=== PATIENT | female | born 1940 | race Caucasian/White ===

== ENCOUNTER → 2016-10-07 | Outpatient (CLI) | payer MEDICARE, BC ==
--- NOTE | 2016-10-09 10:48 | P.ARTDOP ---
Arterial Doppler LOWER EXTREMITY ARTERIAL DOPPLER: DATE OF SERVICE: 10/07/2016 Reason for study: Lower extremity pain, numbness, and coolness. Doppler waveforms: Multiphasic bilaterally throughout. Pulse volume recording: Normal configuration throughout. Pressure gradients: Across the knee. Ankle-brachial indices: 0.85 on the right and 0.93 on the left. Toe pressures: 79 on the right, 82 on the left Impression: Mild bilateral fem-pop disease. Not likely to correlate with symptoms..
== END | disposition home or self-care (01) ==
LOC: RADUSWWP 12:43
PROVIDERS: ATTEND Neurological Surgery
DX: I77.89 Other specified disorders of arteries and arterioles (principal)
CPT/HCPCS: 93923

== ENCOUNTER → 2020-08-17 | Outpatient (CLI) | payer MEDICARE, BC ==
--- NOTE | 2020-08-18 04:52 | MR ---
EXAMINATION TYPE: MR ankle RT wo con DATE OF EXAM: 08/17/2020 COMPARISON: None HISTORY: Rt ankle pain and bump with limited range of movement for 6 months. Multiplanar multiecho imaging of the right ankle was performed without contrast. There is plantar calcaneal spurring. Achilles tendon is intact. Plantar fascia appears intact. There is subcutaneous edema around the lower leg above the ankle. The ankle mortise is anatomic. There is 1 .3 cm area of increased fluid signal in the medial dome of the talus. This extends to the articular s urface. The collateral ligaments appear intact. I see no fracture. The medial and lateral flexor tend ons of the ankle appear intact. There is increased signal on the T2 images in the second cuneiform bone. No fracture line seen. There is a marker placed over the area of concern on the anterior aspect of the distal tibia. There i s subcutaneous mixed signal elongated mass which measures 22 x 12 mm. This could involve one of the e xtensor tendons of the foot. IMPRESSION: There is increased signal consistent with bone bruise and edema and the medial dome of the talus. Thi s could be developing degenerative cyst. There is similar 1 cm focus in the anterior calcaneus extend ing to the subtalar joint. This could be degenerative cyst formation. There is similar appearance of the second cuneiform bone. There is subcutaneous mass at the anterior ankle joint. This could relate to extensor tendon tear wit h hemorrhage.
== END | disposition home or self-care (01) ==
LOC: RADMRIMAIN 15:44
PROVIDERS: ATTEND Nurse Practitioner Family
DX: R22.41 Localized swelling, mass and lump, right lower limb (principal)

== ENCOUNTER → 2020-09-22 | Outpatient (CLI) | payer MEDICARE, BC ==
--- NOTE | 2020-09-24 13:06 | MR ---
EXAMINATION TYPE: MR angio head wo/neck wo/w con DATE OF EXAM: 09/22/2020 COMPARISON: 10/27/2009 HISTORY: weakness, neuropathy, stenosis, l hemisphere cva CONTRAST: None TECHNIQUE: Multiplanar multiecho imaging on a 3.0 Rosalba magnet is performed through the [place]. 3-D iqjg-zc-vygkel imaging is performed. Source images are reviewed on the computer in the axi al plane. Reconstructed images rotating on the computer are reviewed. FINDINGS: MRA of neck vessels: Right vertebral artery is dominant. Common carotid arteries appear unremarkable . No flow gap is evident at the bifurcation. Internal carotid arteries are patent to the skull base m ild plaquing is suspected at the left carotid bifurcation. 2 adjacent plaques or ulceration is not ex cluded. Flow limiting stenosis is not evident. MRA [place]: The internal carotid arteries bifurcate normally into A1 and M1 segments. The A2 segments are normal. Middle cerebral artery branches are normal. Anterior communicating artery is patent. The right posterior communicating artery is patent. The left posterior communicating artery is patent. Vertebrobasilar arteries within the sxabg-by-iflw are normal. Vertebral artery is dominant. Posterior cerebral vasculature is normal. No suspicious aneurysm or aneurysmal dilatation is evident. No obs tructions are identified. No significant flow-limiting stenosis is evident. COMPARISON: No significant interval change is evident. IMPRESSIONS: 1. Normal MRA [place]. 2. Ulceration or 2 adjacent plaques may be present without significant flow-limiting stenosis left ca rotid bifurcation. Right carotid bifurcation mild plaquing without significant flow-limiting stenosis . 3. Dominant right vertebral artery.
== END | disposition home or self-care (01) ==
LOC: RADMRIMAIN 09:25
PROVIDERS: ATTEND Psychiatry & Neurology Neurology
DX: I65.21 Occlusion and stenosis of right carotid artery (principal)
CPT/HCPCS: 70544; 70549; A9585

== ENCOUNTER → 2020-10-06 | Outpatient (CLI) | payer MEDICARE, BC ==
--- NOTE | 2020-11-09 14:05 | EM ---
Event monitor shows 2 short runs of nonsustained atrial tachycardia, Mild sinus bradycardia, asymptomatic mostly at night and early as of the morning When the patient complained of shortness of breath and tiredness, his heart rate was in the 80s without any arrhythmias MTDD
== END | disposition home or self-care (01) ==
LOC: RADECHMAIN 12:20
PROVIDERS: ATTEND Psychiatry & Neurology Neurology
DX: I47.1 Supraventricular tachycardia (principal); R00.1 Bradycardia, unspecified
CPT/HCPCS: 93270

== ENCOUNTER 2020-12-25 10:28 | Day surgery (SDC) | payer MEDICARE, BC ==
[2020-12-22 09:09] VITALS: BMI 35.0
[~2020-12-25 10:28] MED LIST: SODIUM CHLORIDE 0.9% 1,000 ML IV SCH
[2020-12-25] MEDS ORDERED: SODIUM CHLORIDE 0.9% 500 ML 500 ML IV ONE (10:55)
[2020-12-25 11:05] VITALS: TEMP 98
[2020-12-25 11:05] LABS: Glucose,Whole Blood 105 mg/dL (75-99)
[2020-12-25] MEDS ORDERED: MIDAZOLAM 2 MG/2 ML VIAL IV ONE (11:44)
[2020-12-25] MEDS ORDERED: LIDOCAINE 1% INJ 10MG/ML (20 ML MDV) SQ ONE ×2 (11:46)
[2020-12-25 12:22] LABS: Glucose,Whole Blood 98 mg/dL (75-99)
[2020-12-25 13:12] VITALS: BP 142/63; PULSE 48; RESP 18
--- NOTE | 2020-12-25 13:23 | PCN ---
PROCEDURE NOTE PROCEDURE PERFORMED: Loop recorder insertion DATE OF SERVICE: 12/25/2020. Moderate conscious sedation time 10 minutes. INDICATION: Cryptogenic, stroke. CLINICAL INFORMATION: This is a patient with a history of TIA CVA, was seen by Neurology, had an event monitor that was unremarkable, but there is concern that atrial fib may be an issue. She was therefore advised loop recorder after due discussion regarding risks, benefits, and options. PROCEDURE NOTE: Under strict aseptic precautions and local anesthesia with intravenous antibiotic initiated, a stab incision was made in the left fourth intercostal space using the tool provided. The loop recorder was positioned in the left fourth intercostal space in a lateral direction using the tool provided. A single suture was used to close the stab incision. The device was interrogated and the device signal was excellent with a with a voltage of 0.45 mV. The patient tolerated the procedure well without complication. She will be discharged today and will see Dr. Nunez for a device check in 1 week. Loop recorder details: [employer]ident [employer] Manager [employer] model Reveal LNQ11, serial number [id number]. The voltage on interrogation was 0.45 mV. The patient was set for a cryptogenic stroke and bradycardia protocol. Atrial fib all episodes will be recorded. Patient tolerated the procedure well without complication. Details were discussed with the patient and I also spoke to her . SHAWN / MIRANDA: [id number] /
== END 2020-12-25 13:40 | disposition home or self-care (01) ==
LOC: CATHEP 10:28
PROVIDERS: ATTEND Internal Medicine Interventional Cardiology
DX: Z86.73 Personal history of transient ischemic attack (TIA), and cerebral infarction without residual deficits (principal); Z20.822 Contact with and (suspected) exposure to COVID-19
CPT/HCPCS: 33285; 87635; C1764; J2250; J0690; J2001

== ENCOUNTER → 2021-06-20 | Outpatient (CLI) | payer MEDICARE, BC ==
[2021-06-20 12:55] LABS: Appearance,Urine Clear (Clear); Bilirubin,Urine Negative (Negative); Blood,Urine Negative (Negative); Color,Urine Yellow; Glucose,Urine (UA) Negative (Negative); Hyaline Casts,Urine 1 /lpf (0-2); Ketones,Urine Negative (Negative); Leukocyte Esterase,Urine Trace (Negative); Mucus,Urine Rare /hpf; Nitrite,Urine Negative (Negative); PH, Urine 6.5 (5.0-8.0); Protein,Urine Negative (Negative); RBC,Urine 1 /hpf (0-5); Specific Gravity,Urine 1.017 (1.001-1.035); Squamous Epithelial Cell,Urine 2 /hpf (0-4); Urobilinogen,Urine <2.0 mg/dL (<2.0); WBC,Urine 1 /hpf (0-5)
[2021-06-20 13:03] LABS: Partial Thromboplastin Time 24.9 sec (22.0-30.0); Prothrombin Time 10.8 sec (9.0-12.0)
[2021-06-20 19:06] LABS: HCT 41.7 % (37.2-46.3); MCHC 31.2 g/dL (32.0-37.0); MCV 89.9 fL (80.0-97.0); Mean Platelet Volume 10.3 fL (9.5-12.2); NRBC Per 100 WBC 0 /100 WBCS (0.0-0.0); Platelet Count 303 X 10*3/uL (140-440); RBC 4.64 X 10*6/uL (4.10-5.20); RDW 14.3 % (11.5-14.5); WBC 7.79 X 10*3/uL (4.50-10.00)
[2021-06-20 19:15] LABS: African American GFR (CKD) 79.5 (60.0-200.0); Albumin 4.7 g/dL (3.8-4.9); Albumin/Globulin Ratio 1.93 (1.60-3.17); BUN/Creat Ratio 24.47 Ratio (12.00-20.00); Blood Urea Nitrogen 19.6 mg/dL (9.0-27.0); Calcium 9.5 mg/dL (8.7-10.3); Globulin 2.4 g/dL (1.6-3.3); Non-African American GFR(CKD) 68.6 (60.0-200.0); Total Bilirubin 0.4 mg/dL (0.30-1.20); Total Protein 7.1 g/dL (6.2-8.2)
== END | disposition home or self-care (01) ==
LOC: LABPAT 11:47
PROVIDERS: ATTEND Orthopaedic Surgery
DX: Z01.812 Encounter for preprocedural laboratory examination (principal)
CPT/HCPCS: 36415; 80053; 81001; 85027; 85610; 85730; 87070

== ENCOUNTER 2021-07-03 07:48 | Observation (INO) | payer MEDICARE, BC ==
[2021-06-29 11:38] VITALS: BMI 34.5
[~2021-07-03 07:48] MED LIST changes: +ACETAMINOPHEN TAB 500 MG TAB PO PRN; +GABAPENTIN 300 MG CAP PO PRN; +HYDROmorphone 0.5 MG/0.5 ML SYRINGE IVP PRN; +LIDOCAINE 1% (10MG/ML) FOR IV START INTRADERMA PRN; +MELOXICAM 7.5 MG TAB PO PRN; +ONDANSETRON 4 MG/2 ML VIAL IVP ONE; -SODIUM CHLORIDE 0.9% 1,000 ML IV SCH; +TRANEXAMIC ACID IN NACL,ISO-OS 1,000 MG in SALINE 1 100ML.BAG IVPB PRN
[2021-07-03] MEDS ORDERED: HYDROmorphone 0.2 MG/1 ML SYRINGE IVP PRN (08:38)
[2021-07-03] MEDS ORDERED: MAGNESIUM HYDROXIDE 2,400 MG/10 ML CUP PO PRN (08:38)
[2021-07-03] MEDS ORDERED: bisacodyL 10 MG SUPP RECTAL PRN (08:38)
[2021-07-03] MEDS ORDERED: HYDROmorphone 0.5 MG/0.5 ML SYRINGE IVP PRN ×2 (08:38)
[2021-07-03] MEDS ORDERED: NA PHOS,M-B/NA PHOS,DI-BA 133 ML ENEMA RECTAL PRN (08:38)
[2021-07-03] MEDS ORDERED: NALOXONE 0.4 MG/ML 1 ML VIAL IV PRN (08:38)
[2021-07-03] MEDS ORDERED: HYDROcodone/APAP 7.5-325MG 1 EACH TAB PO PRN (08:40)
[2021-07-03] MEDS: LACTATED RINGERS 1,000 ML IV SCH (08:40)
[2021-07-03 09:03] LABS: Glucose,Whole Blood 121 mg/dL (75-99)
[2021-07-03] MEDS ORDERED: fentaNYL (PF) 50 MCG/ML 2 ML AMP IV ONE (09:11)
[2021-07-03] MEDS ORDERED: MIDAZOLAM 2 MG/2 ML VIAL IV ONE (09:11)
[2021-07-03] MEDS ORDERED: SODIUM CHLORIDE 0.9% (PF) 10 ML VIAL ONE (09:35)
[2021-07-03] MEDS ORDERED: LIDOCAINE 2% INJ 20 MG/ML (2 ML VIAL) ONE (09:35)
[2021-07-03] MEDS ORDERED: ROPIVACAINE 5 MG/ML 30 ML VIAL ONE (09:35)
[2021-07-03] MEDS ORDERED: fentaNYL (PF) 50 MCG/ML 2 ML AMP ONE (09:35)
[2021-07-03] MEDS ORDERED: TRANEXAMIC ACID IN NACL,ISO-OS 1,000 MG/100 ML BAG ONE (09:35)
[2021-07-03] MEDS ORDERED: MIDAZOLAM 2 MG/2 ML VIAL ONE (09:35)
[2021-07-03] MEDS ORDERED: PROPOFOL 10 MG/ML 20 ML VIAL IV ONE (09:35)
--- NOTE | 2021-07-03 10:55 | P.OP ---
Date of Procedure: 07/03/21 Preoperative Diagnosis: Severe osteoarthritis left knee Postoperative Diagnosis: Severe osteoarthritis left knee Procedure(s) Performed: Left total knee arthroplasty Implants: [employer] Journey II CR Oxinium cruciate retaining femoral component size 4, left [employer] Journey nonporous tibial baseplate size 3, left [employer] Journey II, XLPE CR articular insert, size 10 mm, Size 3-4, left [employer] Rebecca II resurfacing patellar component, oval, 29 mm All components were cemented using Palacos R bone cement The articulation is Oxinium on polyethylene Anesthesia: spinal Surgeon: Yonny Eddy Mechanical Lead #1: Kelsey Douglas Estimated Blood Loss (ml): 30 Pathology: other (Bone and cartilage) Condition: stable Disposition: PACU Indications for Procedure: After failure of conservative treatment we discussed the surgical and nonsurgical treatment options at length. Patient wishes to proceed with a total knee arthroplasty. Complications specific to this procedure were discussed at length, including but not limited to infection, bleeding, stiffness, and nerve injury. Covid-19 was also discussed at length with the patient, and they are aware of the current policies and procedures. The patient was given the option of delaying surgery, but they elect to proceed knowing these risks. Patient is aware of all these complications and informed consent was obtained Operative Findings: The operative findings are consistent with severe osteoarthritis of the left knee Description of Procedure: Patient was seen in the preoperative area and the consent was reviewed and the operative site was marked with a skin marker. The patient verified the procedure and the operative site. An adductor canal pain catheter and an iPACK block was placed by anesthesia in the preoperative area. The patient was then brought to the operating room and given preoperative antibiotics intravenously. A gram of transexamic acid was given intravenously. A spinal anesthetic was administered by the anesthesia department. A tourniquet was placed on the upper thigh and the lower extremity was prepped with chlorhexidine and draped in usual sterile fashion. A universal timeout was then performed which confirmed the patient's name, surgical site, ALLERGIES, and consent. The lower extremity was then exsanguinated and tourniquet was inflated to 250 mmHg. A standard anterior midline approach to the knee was performed. The skin and subcutaneous tissue were sharply dissected down to the patellar tendon. A medial parapatellar arthrotomy was then performed. The knee was then extended, the patellar was everted, and the knee was again flexed. The infra-patellar fat pad was removed in order to enhance exposure. The anterior horns of both menisci were excised, and a release was performed to the posterior medial aspect of the knee. On gross visual inspection, there was complete loss of articular cartilage in the medial and patellofemoral joint spaces. There was also significant cartilage damage in the lateral compartment. There were multiple periarticular osteophytes globally about the knee which were then removed with a Ronguer. The femoral canal was then opened with the 9.5 mm intramedullary drill. The 8 mm intramedullary elmer was then inserted into the femoral canal with the distal femoral cutting guide set for 5 of valgus. The distal femoral cutting block was then pinned in place. The intramedullary elmer was then removed, and the distal femur was then cut. The cutting block was then removed and the cut was checked for symmetry. The resected bone was then measured to confirm the appropriate distal femoral resection. Next, the sizing guide was then placed and set for 3 external rotation based off of the epicondylar axis and Whitesides line. Pins were then placed and the drill holes, and the femur was sized with the sizing stylus. The pins were then removed, and the sizing guide was then removed. The spikes of the femoral block was then placed into the predrilled holes, and malleted into place. Two 45 mm pins were then placed into the fixation holes on the cutting block. An ida wing was then used to ensure there would be no notching with the anterior cut. The anterior condyles were cut without notching. The anterior chord cut was then performed, followed by the posterior cut, posterior chamfer cut, and the anterior chamfer cut. The collateral ligaments were protected during the entire process. The cutting block was then removed. Any remaining bone and osteophytes were removed from the femur with a Ronguer. The femoral canal was plugged with autologous bone. Attention was then directed to the tibia. The remaining ACL was removed with a Ronguer, and the tibia was then gently subluxed forward with a large bent knee retractor. Any remaining menisci were excised. The posterior lateral corner was cauterized in order to coagulate the lateral geniculate artery. The extra medullary tibial cutting guide was then placed, set for the appropriate rotation, slope, and depth of resection. The proximal tibia cutting guide was then pinned in place. Proximal tibia was then cut and sized. The femoral trial was placed. A narrow saw blade was then used to remove the anterior intracondylar femoral bone. The CR notch trial was then placed. The tibial trial was placed with the appropriate-sized insert. The knee was able to fully extend and flex to 130 and was stable throughout all range of motion. The knee was then extended and the patella was everted. Patella was then measured, and then using an osteotomy guide, the patella was cut at the appropriate level. The patella was then measured and drilled and the patella trial was then placed. The knee was then taken through range of motion with the patella trial and the patella tracked normally using the no thumbs technique. The knee was then extended patella trial was then removed and the patella was everted. Knee was then flexed and lug holes were drilled through the femoral trial and the femoral trial was then removed. The tibial was then re-exposed, and the tibial broach guide was then pinned in place after it was set for the appropriate rotation to allow for the most coverage without overhang. The tibia was then reamed and broached. The cut surfaces of bone were then irrigated with pulsatile lavage. The knee was also irrigated with Irrisept solution. The components were then opened, the cement was mixed, and the components were then cemented in place. The cement was allowed to harden with the knee in full extension. After the cemented hardened, the tourniquet was released and hemostasis was obtained. A second gram of transexamic acid was given intravenously. The knee was again irrigated. The knee was again taken through range of motion and found to be stable throughout all range of motion of 0-130, and the patella tracked normally. The fascia was then closed with 0 Vicryl followed by #2 strata fix suture. The subcutaneous tissue was closed with 3-0 Vicryl and 3-0 strata fix. Exofin glue was used for the skin and placed with the knee in flexion. After the glue had dried, and Optafoam silver impregnated dressing was applied. The patient was then transferred to recovery room in stable condition. The administrative library assistant KEYLA Fuentes was required due the complexity surgery and the need for a skilled surgical training specialist. She assisted in positioning, draping, retraction, and closure of the wound.
[2021-07-03 11:38] LABS: Glucose,Whole Blood 115 mg/dL (75-99)
[2021-07-03] MEDS ORDERED: ROPIVACAINE 0.2%-NS ON-Q PUMP 1,090 MG, EMPTY PAIN BALL 1 EACH MISCELLANE PRN (11:38)
--- NOTE | 2021-07-03 11:39 | P.ANPRN ---
Procedure Note - Anesthesia - Nerve Block Performed Left Adductor Canal Infusion Time Out Performed: Yes (0911) Date of Procedure: 07/03/21 Procedure Start Time: 09:12 Procedure Stop Time: 09:17 Location of Patient: PreOp Indication: Acute Post-Operative Pain, Requested by Surgeon Specifically requested for management of pain by DrMerissa: Yonny Eddy Sedation Type: Sedate with meaningful contact maintained Preparation: Sterile Prep, Sterile Dressing Position: Supine Catheter Depth at Skin (cm): 8 Catheter: Indwelling Needle Types: Pajunk Needle Gauge: 18 Ultrasound used to visualize needle placement: Yes Ultrasound used to observe medication spread: Yes Injectate: 0.5% Ropivacaine (see comment for volume) (15cc + 5cc nacl pf) Blood Aspirated: No Pain Paresthesia on Injection Noted: No Resistance on Injection: Normal Image Stored and Saved: Yes Events: Uneventful and Well Tolerated
--- NOTE | 2021-07-03 11:40 | P.ANPRN ---
Procedure Note - Anesthesia - Nerve Block Performed Left iPack Single Time Out Performed: Yes (910) Date of Procedure: 07/03/21 Procedure Start Time: Procedure Stop Time: Location of Patient: PreOp Indication: Acute Post-Operative Pain, Requested by Surgeon Specifically requested for management of pain by DrMerissa: Yonny Eddy Sedation Type: Sedate with meaningful contact maintained Preparation: Sterile Prep Position: Supine Catheter: None Needle Types: Pajunk Needle Gauge: 21 Ultrasound used to visualize needle placement: Yes Ultrasound used to observe medication spread: Yes Injectate: 0.5% Ropivacaine (see comment for volume) (15cc + 5cc nacl pf) Blood Aspirated: No Pain Paresthesia on Injection Noted: No Resistance on Injection: Normal Image Stored and Saved: Yes Events: Uneventful and Well Tolerated
--- NOTE | 2021-07-03 11:54 | XR ---
EXAMINATION TYPE: XR knee limited LT DATE OF EXAM: 07/03/2021 CLINICAL HISTORY: Left knee pain and arthritis status post total knee replacement. TECHNIQUE: Portable AP and crosstable lateral views of the left knee are obtained immediately postop eratively. COMPARISON: None FINDINGS: Metallic hardware from total left knee arthroplasty is seen and appears satisfactory in al ignment and position. There is evidence of recent surgery with diffuse subcutaneous gas and soft tis doris swelling noted. IMPRESSION: METALLIC HARDWARE FROM TOTAL LEFT KNEE ARTHROPLASTY IS SATISFACTORY IN ALIGNMENT.
[2021-07-03] MEDS ORDERED: LACTATED RINGERS 1,000 ML IV ONE (15:09)
[2021-07-03 16:40] LABS: Glucose,Whole Blood 147 mg/dL (75-99)
[2021-07-03] MEDS: INSULIN ASPART (NovoLOG) 100 UNIT/ML VIAL SQ SCH ×2 (16:50→21:26)
[2021-07-03] MEDS ORDERED: ALPRAZolam 0.5 MG TAB PO PRN (17:17)
[2021-07-03] MEDS ORDERED: CALCIUM CARBONATE 500 MG CHEWABLE PO PRN (17:23)
[2021-07-03] MEDS: GABAPENTIN 400 MG CAP PO SCH ×2 (17:43→21:26)
[2021-07-03] MEDS: SODIUM CHLORIDE 0.9% 1,000 ML IV SCH (18:06)
--- NOTE | 2021-07-03 18:17 | P.CONS ---
History of Present Illness - Reason for Consult Consult date: 07/03/21 Medical Management Requesting physician: Yonny Eddy - Chief Complaint Knee pain - History of Present Illness History of Presenting Illness: Patient is a very pleasant 81-year-old female with a past medical history of hypertension, hyperlipidemia, type 2 ekn-jfbbemw-ddtomvovm diabetes mellitus, GERD, and severe osteoarthritis. She is currently admitted under orthopedic surgery team and is status post left total knee arthroplasty completed by Dr. Eddy on 07/03/21 due to severe osteoarthritis of left knee. We have been consulted for continued medical management throughout patient's hospitalization. Patient was seen and fully evaluated at the bedside. She currently reports postoperative pain is controlled. Patient denies experiencing any postoperative nausea or vomiting and is tolerating oral intake well. Patient denies any recent illnesses, exposure to known ill contacts or having any recent fever. Patient denies history of DVT or PE. Patient reports urinating without any difficulties in postoperative period and is passing flatus without any problems. Vital signs currently stable, however it was reported that patient did have some mild postoperative bradycardia with heart rate dropping down into 40's in which patient remained asymptomatic of documented bradycardia. Currently patient denies having any headache, lightheadedness, dizziness, chest pain, palpitations, shortness of breath, abdominal pain, nausea, vomiting, or experiencing any numbness/tingling/weakness in her extremities. Review of systems: Pertinent positives and negatives as discussed in HPI, a complete review of systems was performed and all other systems are negative. Physical exam: Vital signs reviewed and stable. General: Nontoxic, no distress and appears stated age. Derm: Skin warm and dry, normal coloration for ethnicity. Head: Atraumatic, normocephalic and symmetric. Eyes: EOMs intact, no lid lag, and anicteric sclera Mouth: no lip lesions, mucus membranes moist Cardiovascular: regular rate and rhythm with normal S1S2, no murmur, positive posterior tibial pulses bilaterally, and cap refill < 2 seconds. Lungs: Respirations even, regular, and unlabored on room air. Lungs CTA bilaterally, no rhonchi, no rales, no wheezing, and no accessory muscle usage. Abdominal: soft, nontender to palpation, no guarding, no appreciable organomegaly Ext: ROM intact. No gross muscle atrophy, no edema, no contractures. Postoperative dressing and ice packs in place to left knee/left lower extremity. Neuro: Speech clear, face symmetrical and CN II-XII grossly intact with no noted focal neuro deficits Psych: Alert and oriented to person, place, time, and situation. Appropriate and pleasant affect. Assessment and Plan of Care: Asymptomatic bradycardia -Patient had brief episode of postoperative bradycardia, likely secondary to anesthesia. -We will monitor overnight with telemetry monitoring. -No further cardiac interventions/orders needed at this time. -An EKG to be obtained if bradycardia returns. Status post left total knee arthroplasty Severe osteoarthritis -Management per primary admitting orthopedic surgery team including DVT prophylaxis, pain management, weightbearing, and PT/OT. -Currently DVT prophylaxis with aspirin 325 mg twice a day -Encourage incentive spirometry use 10-15 times hourly while awake -Fall precautions Hypertension -Monitor vital signs and continue daily medication regimen with amlodipine and lisinopril. Hyperlipidemia -Continue daily medication regimen with atorvastatin 20 mg nightly Type II uxu-mmebypm-heysrejvl diabetes mellitus -Hold glipizide and place patient on NovoLog sliding scale to maintain tight glycemic control throughout hospitalization. GERD -Continue daily medication regimen with Protonix 40 mg daily. Thank you for allowing us to participate in the care of this pleasant patient. Do not hesitate to contact us with questions. Someone can be reached from the [facility] hospitalist group all hours of the day at [phone] or via [employer]. I reviewed the documentation as provided by the ANA above, who is the original author of this note. 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 skin cancer, right eye limited vision, cyst left eye affects vision., Charlo palsey 2020., occasional vertigo. History of Any Multi-Drug Resistant Organisms: None Reported Past Surgical History: Back Surgery, Cholecystectomy, Heart Catheterization With Stent, Joint Replacement Additional Past Surgical History / Comment(s): back sx x2, Total Right Knee, Loop Recorder 2020., Heart cath (formerly [facility])., Past Anesthesia/Blood Transfusion Reactions: Previous Problems w/ Anesthesia, Motion Sickness Additional Past Anesthesia/Blood Transfusion Reaction / Comm: states x1 she couldnt breathe when she woke up. Date of Last Stent Placement:: unknown Past Psychological History: Anxiety Smoking Status: Never smoker Past Alcohol Use History: None Reported Past Drug Use History: None Reported - Past Family History Sister(s) Family Medical History: Pulmonary Embolus Medications and Allergies Home Medications Medication Instructions Recorded Confirmed Type ALPRAZolam [ALPRAZolam XR] 0.5 mg PO DAILY PRN 01/02/15 06/29/21 History Aspirin EC [Ecotrin] 81 mg PO DAILY 01/02/15 06/29/21 History Pantoprazole Sodium 40 mg PO DAILY 01/02/15 06/29/21 History hydroCHLOROthiazide [Hydrodiuril] 25 mg PO DAILY 01/02/15 06/29/21 History Atorvastatin [Lipitor] 20 mg PO HS 06/29/21 06/29/21 History Benzonatate [Tessalon Perles] 100 - 200 mg PO TID PRN 06/29/21 06/29/21 History Cholecalciferol [Vitamin D3 (25 25 mcg PO DAILY 06/29/21 06/29/21 History Mcg = 1000 Iu)] Cyanocobalamin (Vitamin B-12) 3,000 mcg PO WEEKLY 06/29/21 06/29/21 History [Vitamin B12] Gabapentin [Neurontin] 400 mg PO QID 06/29/21 06/29/21 History Ibuprofen [Motrin] 800 mg PO Q8H PRN 06/29/21 06/29/21 History Levothyroxine Sodium [Synthroid] 75 mcg PO DAILY 06/29/21 06/29/21 History Lisinopril-Hctz 20-25 mg 1 tab PO DAILY 06/29/21 06/29/21 History [Zestoretic 20-25] Magnesium Oxide [Mag-Ox] 250 mg PO BID 06/29/21 06/29/21 History Vit C/E/Zn/Coppr/Lutein/Zeaxan 1 each PO DAILY 06/29/21 06/29/21 History [Preservision Areds 2 Softgel] amLODIPine [Norvasc] 2.5 mg PO HS 06/29/21 06/29/21 History diphenhydrAMINE [Benadryl] 25 - 75 mg PO HS PRN 06/29/21 06/29/21 History glipiZIDE XL [Glucotrol Xl] 5 mg PO DIRECTED PRN 06/29/21 06/29/21 History glipiZIDE XL [Glucotrol Xl] 5 mg PO DAILY 06/29/21 06/29/21 History Aspirin 325 mg PO BID #60 tab 07/02/21 Rx HYDROcodone/APAP 7.5-325MG [Brainard 1 - 2 tab PO Q6H PRN #32 tab 07/02/21 Rx 7.5-325] Ondansetron Odt [Zofran Odt] 1 tab PO Q8HR PRN #10 tab 07/02/21 Rx Sennosides [Senokot] 2 tab PO DAILY PRN #60 tablet 07/02/21 Rx Allergies Allergy/AdvReac Type Severity Reaction Status Date / Time No Known Allergies Allergy Verified 07/03/21 08:15 Physical Exam Osteopathic Statement: *. No significant issues noted on an osteopathic structural exam other than those noted in the History and Physical/Consult. Vitals: Vital Signs Temp Pulse Pulse Resp BP BP Pulse Ox 07/03/21 16:58 98.4 F 70 17 95/62 100 07/03/21 16:48 98.2 F 55 L 17 136/52 100 07/03/21 15:00 45 L 16 159/67 95 07/03/21 13:55 48 L 14 150/65 96 07/03/21 13:25 41 L 16 138/62 100 07/03/21 12:54 47 L 16 147/64 100 07/03/21 12:24 42 L 18 128/59 98 07/03/21 12:09 45 L 16 122/58 99 07/03/21 11:54 41 L 14 116/58 98 07/03/21 11:34 49 L 14 120/55 99 07/03/21 11:19 96.8 F L 47 L 16 99/49 94 L 07/03/21 09:33 56 L 16 171/71 100 07/03/21 08:40 97.2 F L 51 L 16 154/70 100 Intake and Output 04/26/22 04/26/22 04/26/22 06:59 14:59 22:59 Intake Total 1050 200 Output Total 30 200 Balance 1020 0 Intake: IV 1050 200 Output: Urine 200 Estimated Blood Loss 30 Other: Weight 88.9 kg 88.9 kg Results Labs: Abnormal Lab Results - Last 24 Hours (Table) 07/03/21 07/03/21 07/03/21 Range/Units 08:49 11:37 16:38 POC Glucose (mg/dL) 121 H 115 H 147 H (75-99) mg/dL
[2021-07-03] MEDS: HYDROcodone/APAP 7.5-325MG 1 EACH TAB PO PRN (18:30)
[2021-07-03 20:41] LABS: Glucose,Whole Blood 139 mg/dL (75-99)
[2021-07-03] MEDS ORDERED: amLODIPine 2.5 MG TAB PO SCH (21:00)
[2021-07-03] MEDS ORDERED: SENNOSIDES-DOCUSATE SODIUM 1 EACH TAB PO SCH (21:00)
[2021-07-03] MEDS ORDERED: ATORVASTATIN 20 MG TAB PO SCH (21:00)
[2021-07-03] MEDS: ASPIRIN 325 MG TAB PO SCH (21:26)
[2021-07-03] MEDS: MAGNESIUM OXIDE 400 MG TAB PO SCH (21:26)
[2021-07-03] MEDS: ONDANSETRON 4 MG/2 ML VIAL IVP PRN (21:37)
[2021-07-04] MEDS: SODIUM CHLORIDE 0.9% 1,000 ML IV SCH (02:35)
[2021-07-04 03:20] VITALS: RESP 20
[2021-07-04] MEDS ORDERED: LEVOTHYROXINE 75 MCG TAB PO SCH (06:30)
[2021-07-04 06:59] LABS: Glucose,Whole Blood 150 mg/dL (75-99)
[2021-07-04] MEDS: MAGNESIUM OXIDE 400 MG TAB PO SCH (07:30)
[2021-07-04] MEDS: INSULIN ASPART (NovoLOG) 100 UNIT/ML VIAL SQ SCH ×2 (07:30→11:18)
[2021-07-04] MEDS: ASPIRIN 325 MG TAB PO SCH (07:30)
[2021-07-04] MEDS: GABAPENTIN 400 MG CAP PO SCH ×2 (07:30→12:22)
[2021-07-04] MEDS: HYDROcodone/APAP 7.5-325MG 1 EACH TAB PO PRN ×2 (07:31→12:21)
[2021-07-04] MEDS: LACTATED RINGERS 1,000 ML IV SCH (07:31)
[2021-07-04 07:52] VITALS: BP 129/61; PULSE 62; TEMP 98.3
[2021-07-04] MEDS ORDERED: LISINOPRIL-HCTZ 20-25 MG 1 EACH TAB PO SCH (09:00)
[2021-07-04] MEDS ORDERED: PANTOPRAZOLE 40 MG TABLET PO SCH (09:00)
[2021-07-04] MEDS ORDERED: MULTIVITAMINS, THERA 1 EACH TAB PO SCH (09:00)
[2021-07-04] MEDS ORDERED: CHOLECALCIFEROL 25 MCG (1000 IU) TABLET PO SCH (09:00)
--- NOTE | 2021-07-04 09:53 | P.PN ---
Progress Note - Text Progress Note Date: 07/04/21 patient was seen and evaluated at bedside. Status post postoperative day 1 for left total knee arthroplasty patient had adductor canal catheter for postop pain control. Patient rated pain at rest 4 out of 10 in severity. Patient describes pain is aching, throbbing type on the sides of the knee and back of the knee. Patient started walking with support. With activity patient pain levels are 6 out of 10 in severity. With the help of oral pain medications pain levels are tolerable. Patient denied any weakness/ numbness in lower extremities. patient denied any fever, pain over the catheter site. Physical exam: Patient vital signs stable Patient is alert awake oriented 3 responding to all questions appropriately Examination of the catheter site showed dressing intact, no leaking fluid around the catheter, no redness, no tenderness over the catheter insertion area. plan: status post postoperative day 1 for left total knee arthroplasty with adductor canal catheter for pain control. Patient was discussed to continue the medication at the rate of 8 mL per hour until the pump is completely empty and instructed the patient how to discontinue the catheter
--- NOTE | 2021-07-04 10:27 | P.DS ---
Providers Date of admission: 07/04/21 07:52 Expected date of discharge: 07/04/21 Attending physician: Yonny Eddy Consults: 07/03/21 08:38 Consult Physician Routine Consulting Provider: Aysha Montiel Consult Reason/Comments: medical management Do you want consulting provider notified?: Yes Primary care physician: Misha Mueller - Discharge Diagnosis(es) (1) Status post total left knee replacement Current Visit: Yes Status: Acute (2) Primary localized osteoarthritis of left knee Current Visit: Yes Status: Acute Hospital Course: This is an 81-year-old female who was last seen with complaint of continued left knee pain. The patient has a known history of degenerative arthritis of the left knee and presents to discuss surgical options. After discussion and consideration the patient elects to proceed with total left knee arthroplasty. The patient is seen preoperatively by her primary care physician and cleared for surgery. The patient is admitted to [facility] for total left knee arthroplasty. The procedures performed without complication or sequelae. He is doing well postoperatively. Vital signs are stable at discharge. Labs are stable at discharge. the patient is ambulating well with walker with minimal assistance. The patient is discharged to home on postop day #1 pending medical clearance. Please see orders and refer to the med rec for accurate list of medications. Patient Condition at Discharge: Good Plan - Discharge Summary New Discharge Prescriptions: New Sennosides [Senokot] 2 tab PO DAILY PRN #60 tablet PRN Reason: Constipation Aspirin 325 mg PO BID #60 tab HYDROcodone/APAP 7.5-325MG [Wayne 7.5-325] 1 - 2 tab PO Q6H PRN #32 tab PRN Reason: Pain Ondansetron Odt [Zofran Odt] 1 tab PO Q8HR PRN #10 tab PRN Reason: Nausea No Action Pantoprazole Sodium 40 mg PO DAILY Aspirin EC [Ecotrin] 81 mg PO DAILY ALPRAZolam [ALPRAZolam XR] 0.5 mg PO DAILY PRN PRN Reason: Anxiety hydroCHLOROthiazide [Hydrodiuril] 25 mg PO DAILY glipiZIDE XL [Glucotrol Xl] 5 mg PO DIRECTED PRN PRN Reason: Blood Sugar - High glipiZIDE XL [Glucotrol Xl] 5 mg PO DAILY Ibuprofen [Motrin] 800 mg PO Q8H PRN PRN Reason: Pain Benzonatate [Tessalon Perles] 100 - 200 mg PO TID PRN PRN Reason: Cough Atorvastatin [Lipitor] 20 mg PO HS amLODIPine [Norvasc] 2.5 mg PO HS Magnesium Oxide [Mag-Ox] 250 mg PO BID Gabapentin [Neurontin] 400 mg PO QID Vit C/E/Zn/Coppr/Lutein/Zeaxan [Preservision Areds 2 Softgel] 1 each PO DAILY diphenhydrAMINE [Benadryl] 25 - 75 mg PO HS PRN PRN Reason: Insomnia Cholecalciferol [Vitamin D3 (25 Mcg = 1000 Iu)] 25 mcg PO DAILY Lisinopril-Hctz 20-25 mg [Zestoretic 20-25] 1 tab PO DAILY Levothyroxine Sodium [Synthroid] 75 mcg PO DAILY Cyanocobalamin (Vitamin B-12) [Vitamin B12] 3,000 mcg PO WEEKLY Discharge Medication List ALPRAZolam [ALPRAZolam XR] 0.5 mg PO DAILY PRN 01/02/15 [History] Aspirin EC [Ecotrin] 81 mg PO DAILY 01/02/15 [History] Pantoprazole Sodium 40 mg PO DAILY 01/02/15 [History] hydroCHLOROthiazide [Hydrodiuril] 25 mg PO DAILY 01/02/15 [History] Atorvastatin [Lipitor] 20 mg PO HS 06/29/21 [History] Benzonatate [Tessalon Perles] 100 - 200 mg PO TID PRN 06/29/21 [History] Cholecalciferol [Vitamin D3 (25 Mcg = 1000 Iu)] 25 mcg PO DAILY 06/29/21 [History] Cyanocobalamin (Vitamin B-12) [Vitamin B12] 3,000 mcg PO WEEKLY 06/29/21 [History] Gabapentin [Neurontin] 400 mg PO QID 06/29/21 [History] Ibuprofen [Motrin] 800 mg PO Q8H PRN 06/29/21 [History] Levothyroxine Sodium [Synthroid] 75 mcg PO DAILY 06/29/21 [History] Lisinopril-Hctz 20-25 mg [Zestoretic 20-25] 1 tab PO DAILY 06/29/21 [History] Magnesium Oxide [Mag-Ox] 250 mg PO BID 06/29/21 [History] Vit C/E/Zn/Coppr/Lutein/Zeaxan [Preservision Areds 2 Softgel] 1 each PO DAILY 06/29/21 [History] amLODIPine [Norvasc] 2.5 mg PO HS 06/29/21 [History] diphenhydrAMINE [Benadryl] 25 - 75 mg PO HS PRN 06/29/21 [History] glipiZIDE XL [Glucotrol Xl] 5 mg PO DIRECTED PRN 06/29/21 [History] glipiZIDE XL [Glucotrol Xl] 5 mg PO DAILY 06/29/21 [History] Aspirin 325 mg PO BID #60 tab 07/02/21 [Rx] HYDROcodone/APAP 7.5-325MG [Wayne 7.5-325] 1 - 2 tab PO Q6H PRN #32 tab 07/02/21 [Rx] Ondansetron Odt [Zofran Odt] 1 tab PO Q8HR PRN #10 tab 07/02/21 [Rx] Sennosides [Senokot] 2 tab PO DAILY PRN #60 tablet 07/02/21 [Rx] Follow up Appointment(s)/Referral(s): [facility] [NON-STAFF] - As Needed (Continuous Passive Motion knee machine) [facility], [NON-STAFF] - As Needed Yonny Eddy DO [Doctor of Osteopathic Medicine] - 2 Weeks Activity/Diet/Wound Care/Special Instructions: Weightbearing as tolerated with a walker. CPM 5-6h daily as tolerated. Leave dressing intact. Dressing may be removed by home care nurse or by patient in 7 days. Then change dressing twice daily until follow up. May shower with initial dressing intact and after removal. If dressing become saturated, please remove. Recommend use of compression stockings daily until follow up to help prevent swelling and blood clots. May remove at night before sleeping. Please take aspirin 325mg twice daily for 30 days to prevent blood clots. Please follow up with [facility] and call with any questions or c oncerns, . Discharge Disposition: HOME WITH HOME HEALTH SERVICES
[2021-07-04 10:50] LABS: Basophils # (A) 0.02 X 10*3/uL (0.00-0.10); Basophils % (A) 0.2 %; Eosinophils # (A) 0.01 X 10*3/uL (0.04-0.35); Eosinophils % (A) 0.1 %; HCT 39.1 % (37.2-46.3); HGB 12.2 g/dL (12.0-15.0); Immature Grans, Automated 0.5 %; Lymphocytes # (A) 0.67 X 10*3/uL (0.90-5.00); Lymphocytes % (A) 5.6 %; MCHC 31.2 g/dL (32.0-37.0); MCV 89.9 fL (80.0-97.0); Mean Platelet Volume 10.2 fL (9.5-12.2); Monocytes # (A) 0.76 X 10*3/uL (0.20-1.00); Monocytes % (A) 6.3 %; NRBC Per 100 WBC 0 /100 WBCS (0.0-0.0); Neutrophils # (A) 10.53 X 10*3/uL (1.80-7.70); Neutrophils % (A) 87.3 %; Platelet Count 251 X 10*3/uL (140-440); RBC 4.35 X 10*6/uL (4.10-5.20); RDW 13.9 % (11.5-14.5); WBC 12.05 X 10*3/uL (4.50-10.00)
[2021-07-04 11:11] LABS: Glucose,Whole Blood 109 mg/dL (75-99)
[2021-07-04 11:39] LABS: African American GFR (CKD) 60.8 (60.0-200.0); Albumin 4.1 g/dL (3.8-4.9); Albumin/Globulin Ratio 2.05 (1.60-3.17); Anion Gap 11.8 mmol/L (10.00-18.00); BUN/Creat Ratio 15.8 Ratio (12.00-20.00); Blood Urea Nitrogen 15.8 mg/dL (9.0-27.0); Calcium 8.7 mg/dL (8.7-10.3); Carbon Dioxide 27.2 mmol/L (20.0-27.5); Magnesium 1.6 mg/dL (1.5-2.4); Non-African American GFR(CKD) 52.4 (60.0-200.0); Potassium 4.2 mmol/L (3.5-5.5); Total Bilirubin 0.3 mg/dL (0.30-1.20); Total Protein 6.1 g/dL (6.2-8.2)
[2021-07-04] MEDS: ONDANSETRON 4 MG/2 ML VIAL IVP PRN (13:08)
--- NOTE | 2021-07-04 16:02 | P.PN ---
Subjective Progress Note Date: 07/04/21 History of Presenting Illness: Patient is a very pleasant 81-year-old female with a past medical history of hypertension, hyperlipidemia, type 2 stw-kcwuutr-bszchqnad diabetes mellitus, GERD, and severe osteoarthritis. She is currently admitted under orthopedic surgery team and is status post left total knee arthroplasty completed by Dr. Eddy on 07/03/21 due to severe osteoarthritis of left knee. We have been consulted for continued medical management throughout patient's hospitalization. Patient was noted to have asymptomatic bradycardia and postoperative period, this is believed to be secondary to anesthesia. Patient was monitored overnight and had no further episodes of reported bradycardia. Postoperative hemoglobin stable with hemoglobin of 12.2, CMP pending results. Patient sitting up in chair this morning denies having any complaints or concerns at this time. Patient reports postoperative pain is controlled and states that she has been ambulating with assistance and use of walker to and from restroom without any reported difficulties. Per RN, orthopedic surgery planning for discharge likely tomorrow morning. Patient denies having any headache, lightheadedness, dizziness, chest pain, palpitations, shortness of breath, or experiencing any numbness/tingling in her extremities. Anesthesiologist at bedside to evaluate. We will continue to follow patient throughout hospitalization. Physical exam: Vital signs reviewed and stable. General: Nontoxic, no distress and appears stated age. Derm: Skin warm and dry, normal coloration for ethnicity. Head: Atraumatic, normocephalic and symmetric. Eyes: EOMs intact, no lid lag, and anicteric sclera Mouth: no lip lesions, mucus membranes moist Cardiovascular: regular rate and rhythm with normal S1S2, no murmur, positive posterior tibial pulses bilaterally, and cap refill < 2 seconds. Lungs: Respirations even, regular, and unlabored on room air. Lungs CTA bilaterally, no rhonchi, no rales, no wheezing, and no accessory muscle usage. Abdominal: soft, nontender to palpation, no guarding, no appreciable organomegaly Ext: ROM intact. No gross muscle atrophy, no edema, no contractures. Post operative dressing and ice packs in place to left knee/left lower extremity. Neuro: Speech clear, face symmetrical and CN II-XII grossly intact with no noted focal neuro deficits Psych: Alert and oriented to person, place, time, and situation. Appropriate and pleasant affect. Assessment and Plan of Care: Asymptomatic bradycardia, resolved -Patient had brief episode of postoperative bradycardia, likely secondary to anesthesia. With no further episodes reported during hospitalization. -No further cardiac interventions/orders needed at this time. -An EKG to be obtained if bradycardia returns. Status post left total knee arthroplasty Severe osteoarthritis -Management per primary admitting orthopedic surgery team including DVT prophylaxis, pain management, weightbearing, and PT/OT. -Currently DVT prophylaxis with aspirin 325 mg twice a day -Encourage incentive spirometry use 10-15 times hourly while awake -Fall precautions Hypertension -Monitor vital signs and continue daily medication regimen with amlodipine and lisinopril. Hyperlipidemia -Continue daily medication regimen with atorvastatin 20 mg nightly Type II vyv-dnfnehb-frczrrrgd diabetes mellitus -Hold glipizide and place patient on NovoLog sliding scale to maintain tight glycemic control throughout hospitalization. GERD -Continue daily medication regimen with Protonix 40 mg daily. Thank you for allowing us to participate in the care of this pleasant patient. Do not hesitate to contact us with questions. Someone can be reached from the [facility] hospitalist group all hours of the day at [phone] or via [employer]. I reviewed the documentation as provided by the ANA above, who is the original author of this note. I agree with the documented assessment and plan, with the following changes: None Objective - Vital Signs Vital signs: Vital Signs Temp 98.3 F 07/04/21 07:51 Pulse 62 07/04/21 07:51 Resp 20 07/04/21 02:35 BP 129/61 07/04/21 07:51 Pulse Ox 95 07/04/21 07:51 Intake & Output 07/03/21 07/04/21 07/04/21 18:59 06:59 18:59 Intake Total 1250 Output Total 230 Balance 1020 Weight 88.9 kg Intake: IV 1250 Output: Urine 200 Estimated Blood Loss 30 Other: Voiding Method Toilet Toilet # Voids 1 - Labs CBC & Chem 7: 07/04/21 04:00 07/04/21 04:00 Labs: Abnormal Lab Results - Last 24 Hours (Table) 07/03/21 07/03/21 07/03/21 Range/Units 08:49 11:37 16:38 POC Glucose (mg/dL) 121 H 115 H 147 H (75-99) mg/dL 07/03/21 07/04/21 Range/Units 20:39 06:57 POC Glucose (mg/dL) 139 H 150 H (75-99) mg/dL
[2021-07-10] MEDS ORDERED: CYANOCOBALAMIN 500 MCG TAB PO SCH (09:00)
== END 2021-07-04 13:46 | disposition home health service (06) ==
LOC: OR 07:48 → 4SSUR 11:19 → OR 07-04 07:28 → 4SSUR 07-04 07:52
PROVIDERS: ADMIT Orthopaedic Surgery; ATTEND Orthopaedic Surgery
DX: M17.12 Unilateral primary osteoarthritis, left knee (principal); I10 Essential (primary) hypertension; E03.9 Hypothyroidism, unspecified; E78.5 Hyperlipidemia, unspecified; I25.10 Atherosclerotic heart disease of native coronary artery without angina pectoris; Z86.73 Personal history of transient ischemic attack (TIA), and cerebral infarction without residual deficits; Z95.5 Presence of coronary angioplasty implant and graft; R45.0 Nervousness; K21.9 Gastro-esophageal reflux disease without esophagitis; F41.9 Anxiety disorder, unspecified; Z85.828 Personal history of other malignant neoplasm of skin; E11.9 Type 2 diabetes mellitus without complications; Z97.3 Presence of spectacles and contact lenses; Z96.651 Presence of right artificial knee joint; Z90.710 Acquired absence of both cervix and uterus; Z84.89 Family history of other specified conditions; Z98.1 Arthrodesis status; Z98.49 Cataract extraction status, unspecified eye; Z79.84 Long term (current) use of oral hypoglycemic drugs; Z79.1 Long term (current) use of non-steroidal anti-inflammatories (NSAID); Z79.82 Long term (current) use of aspirin; Z79.890 Hormone replacement therapy; Z79.899 Other long term (current) drug therapy
CPT/HCPCS: 97161; 64999; 64448; 76942; 80053; 83735; 85025; 88300; 73560; 27447; G0378; C1713; C1776; J2250; J0690 ×2; J2405 ×2; J3010; J2795 ×2; J2704; J1170; J2001

== ENCOUNTER 2021-08-14 20:46 | Emergency (ER) | payer MEDICARE, BC ==
[2021-08-14 20:52] VITALS: RESP 16; TEMP 98.3
[2021-08-14] MEDS ORDERED: predniSONE 50 MG TAB PO STA (23:45)
[2021-08-14] MEDS ORDERED: ONDANSETRON ODT 4 MG TAB PO STA (23:45)
[2021-08-14] MEDS ORDERED: HYDROmorphone 0.5 MG/0.5 ML SYRINGE IM STA (23:45)
--- NOTE | 2021-08-14 23:50 | ED ---
General Adult HPI - General Chief complaint: Extremity Problem,Nontraumatic Stated complaint: Bilateral leg pain Time Seen by Provider: 08/14/21 22:24 Source: patient, family, RN notes reviewed Mode of arrival: wheelchair Limitations: no limitations - History of Present Illness Initial comments: 81-year-old female presents to the emergency department for evaluation of bilateral lower extremity pain extending from the knees to the toes. Patient states this pain is neuropathic in nature for which she takes Neurontin 4 times daily. Patient states she has been taking her medications as prescribed, however has had increased activity recently and thinks perhaps she over did it. Denies any new trauma or injury. No fever, chills, headache, dizziness, chest pain, difficulty breathing, abdominal pain, nausea, vomiting, diarrhea, or dysuria. - Related Data Home Medications Medication Instructions Recorded Confirmed Pantoprazole Sodium 40 mg PO DAILY 01/02/15 08/14/21 hydroCHLOROthiazide [Hydrodiuril] 25 mg PO DAILY 01/02/15 08/14/21 Atorvastatin [Lipitor] 20 mg PO HS 06/29/21 08/14/21 Cholecalciferol [Vitamin D3 (25 25 mcg PO DAILY 06/29/21 08/14/21 Mcg = 1000 Iu)] Gabapentin [Neurontin] 400 mg PO QID 06/29/21 08/14/21 Levothyroxine Sodium [Synthroid] 75 mcg PO DAILY 06/29/21 08/14/21 Lisinopril-Hctz 20-25 mg 1 tab PO DAILY 06/29/21 08/14/21 [Zestoretic 20-25] Magnesium Oxide [Mag-Ox] 250 mg PO BID 06/29/21 08/14/21 Vit C/E/Zn/Coppr/Lutein/Zeaxan 1 cap PO DAILY 06/29/21 08/14/21 [Preservision Areds 2 Softgel] amLODIPine [Norvasc] 2.5 mg PO HS 06/29/21 08/14/21 diphenhydrAMINE [Benadryl] 25 - 75 mg PO HS PRN 06/29/21 08/14/21 glipiZIDE XL [Glucotrol Xl] 5 mg PO DIRECTED PRN 06/29/21 08/14/21 glipiZIDE XL [Glucotrol Xl] 5 mg PO DAILY 06/29/21 08/14/21 ALPRAZolam [Xanax] 0.5 mg PO DAILY PRN 08/14/21 08/14/21 Cyanocobalamin (Vitamin B-12) 1,000 mcg PO DAILY 08/14/21 08/14/21 [Vitamin B-12] Previous Rx's Medication Instructions Recorded Aspirin 325 mg PO BID #60 tab 07/02/21 HYDROcodone/APAP 7.5-325MG [[place] 1 - 2 tab PO Q6H PRN #32 tab 07/02/21 7.5-325] Ondansetron Odt [Zofran Odt] 1 tab PO Q8HR PRN #10 tab 07/02/21 Sennosides [Senokot] 2 tab PO DAILY PRN #60 tablet 07/02/21 predniSONE 50 mg PO DAILY #4 tab 08/15/21 Allergies Allergy/AdvReac Type Severity Reaction Status Date / Time No Known Allergies Allergy Verified 08/14/21 20:48 Review of Systems ROS Statement: Those systems with pertinent positive or pertinent negative responses have been documented in the HPI. ROS Other: All systems not noted in ROS Statement are negative. 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 skin cancer, right eye limited vision, cyst left eye affects vision., [place] palsey 2020., occasional vertigo. History of Any Multi-Drug Resistant Organisms: None Reported Past Surgical History: Back Surgery, Cholecystectomy, Heart Catheterization With Stent, Joint Replacement Additional Past Surgical History / Comment(s): back sx x2, Total Right Knee, Loop Recorder 2020., Heart cath ([facility])., Past Anesthesia/Blood Transfusion Reactions: Previous Problems w/ Anesthesia, Motion Sickness Additional Past Anesthesia/Blood Transfusion Reaction / Comment(s): states x1 she couldnt breathe when she woke up. Date of Last Stent Placement:: unknown Past Psychological History: Anxiety Smoking Status: Never smoker Past Alcohol Use History: None Reported Past Drug Use History: None Reported - Past Family History Sister(s) Family Medical History: Pulmonary Embolus General Exam Limitations: no limitations General appearance: alert, other (Well-developed, well-nourished female in moderate distress due to pain. Initial temperature 98.3, pulse 71, respiration 16, blood pressure 207/83, pulse ox 98% on room air.) Eye exam: Present: normal appearance. Absent: scleral icterus, conjunctival injection, periorbital swelling, periorbital tenderness ENT exam: Present: normal exam, normal oropharynx, mucous membranes moist Respiratory exam: Present: normal lung sounds bilaterally. Absent: respiratory distress, wheezes, rales, rhonchi, stridor, chest wall tenderness Cardiovascular Exam: Present: regular rate, normal rhythm, normal heart sounds. Absent: systolic murmur, diastolic murmur, rubs, gallop, clicks GI/Abdominal exam: Present: soft, normal bowel sounds. Absent: distended, tenderness, guarding, rebound, rigid Extremities exam: Present: normal inspection, full ROM, normal capillary refill, other (No loss of sensation, injury, edema, or erythema to BLE. +2 pedal and posttibial pulses. ). Absent: tenderness, pedal edema, joint swelling, calf tenderness Neurological exam: Present: alert, oriented X3, CN II-XII intact Psychiatric exam: Present: anxious Skin exam: Present: warm, dry, intact, normal color. Absent: rash Course Vital Signs 08/14/21 08/15/21 20:48 02:28 Temperature 98.3 F Pulse Rate 71 70 Respiratory 16 16 Rate Blood Pressure 207/83 160/68 O2 Sat by Pulse 98 Oximetry - Reevaluation(s) Reevaluation #1: 08/15/21 00:51 Upon reassessment, patient states her pain persists and has had minimal change since remain Dilaudid. Discussed additional options, patient was able to tolerate Dilaudid without any adverse side effects therefore will be given a repeat dose. Patient does appear to be resting more comfortably. She is not restless and is able to answer questions more easily. 08/15/21 01:45 Upon reevaluation, patient reports significant improvement and feels ready for discharge. Discussed medication options for home. Encouraged her to follow up with her PCP as soon as possible. Medical Decision Making - Medical Decision Making 81-year-old female with a past medical history of spinal stenosis, type 2 diabetes, hypertension, and peripheral neuropathy presents to the emergency department for evaluation of lower extremity pain. Upon assessment, patient is restless and appears uncomfortable. She reports increased activity recently. Has been taking her medications as prescribed. She is hesitant to take anything strong for pain due to side effects that she feels intolerable. Discussed pain management options for the emergency department and patient was given 2 very small IM doses of Dilaudid which she was able to tolerate well with improvement. Was also given Prednisone, though discussed this at length as she is diabetic. Patient will follow up with her PCP for reevaluation. Return parameters discussed in detail. Patient verbalizes understanding and agrees with this plan. Attending: Carmen. Disposition Clinical Impression: Neuropathy involving both lower extremities Disposition: HOME SELF-CARE Condition: Stable Instructions (If sedation given, give patient instructions): Peripheral Neuropathy (ED) Additional Instructions: Continue taking your home medications as prescribed. Rest as needed. Take prednisone; monitor your blood sugar carefully and avoid excess sugar intake. Please call your PCP to schedule a follow-up appointment by the end of the week. Return to the emergency department with any new, worsening, or concerning symptoms. Prescriptions: predniSONE 50 mg PO DAILY #4 tab Is patient prescribed a controlled substance at d/c from ED?: No Referrals: Misha Mueller MD [Primary Care Provider] - 1-2 days Time of Disposition: 02:07
[2021-08-15] MEDS ORDERED: HYDROmorphone 0.5 MG/0.5 ML SYRINGE IM STA (00:50)
[2021-08-15 02:29] VITALS: BP 160/68; PULSE 70
== END 2021-08-15 02:29 | disposition home or self-care (01) ==
LOC: EC 20:46
DX: E11.40 Type 2 diabetes mellitus with diabetic neuropathy, unspecified (principal); I10 Essential (primary) hypertension; I25.10 Atherosclerotic heart disease of native coronary artery without angina pectoris; K21.9 Gastro-esophageal reflux disease without esophagitis; M19.90 Unspecified osteoarthritis, unspecified site; E07.9 Disorder of thyroid, unspecified; F41.9 Anxiety disorder, unspecified; Z86.73 Personal history of transient ischemic attack (TIA), and cerebral infarction without residual deficits; Z79.84 Long term (current) use of oral hypoglycemic drugs; Z79.82 Long term (current) use of aspirin; Z79.890 Hormone replacement therapy; Z79.899 Other long term (current) drug therapy
CPT/HCPCS: 96372; 99283

== ENCOUNTER → 2022-01-23 | Outpatient (CLI) | payer MEDICARE, BC ==
--- NOTE | 2022-01-23 18:10 | CT ---
EXAMINATION TYPE: CT lumbar spine wo con CT DLP: 1523.0 mGycm, Automated exposure control for dose reduction was used. DATE OF EXAM: 01/23/2022 4:53 PM COMPARISON: None CLINICAL INDICATION:Female, 81 years old with history of M48.062 SPINAL STENOSIS, LUMBAR REGION WITH NEURO, Spinal stenosis. Right side low back and hip pain. TECHNIQUE: Multiple axial images were obtained from the midportion of T11 through the sacroiliac amarilis nts. Soft tissue and bone windows in coronal and sagittal planes were obtained and reviewed. Contrast used: none. Oral contrast used: none. FINDINGS: Alignment: There are 5 lumbar type vertebral bodies. There is retrolisthesis of L3 on L4 and anteroli sthesis of L5 on S1. Bone: Postsurgical changes to L4 and L5 with hardware in place and intact. There is additionally baez inectomy at L5 is also present. Multilevel disc degeneration changes most proximal at L3-L4. Osteophy valeria are seen throughout the spinal canal with disc space loss of height. Mild degeneration changes of the sacroiliac joints bilaterally with osteophyte formation.. Discs: T12-L1: Mild spinal canal stenosis secondary to disc bulge/osteophytes. The neural foramen are grossl y patent. L1-L2: Facet joint arthropathy with moderate severe bilateral neural foraminal stenosis. L2-L3: Facet joint arthropathy without significant spinal canal stenosis. Facet joint arthropathy wit h at least mild neural foraminal stenosis. L3-L4: Post surgical changes at this level spinal canal is grossly patent. Moderate bilateral neural foraminal stenosis secondary to facet joint arthropathy. L4-L5: Postsurgical changes with hardware in place. The spinal canal is patent. The neural foramen a re patent. L5-S1: Mild disc uncovering with mild spinal canal stenosis. Facet joint arthropathy with at least mi ld to moderate neural foraminal stenosis bilaterally. Other: Atherosclerosis of the arterial vasculature. Left renal cyst. Scattered clonic diverticula. IMPRESSION: 1. Postsurgical changes without evidence for significant spinal canal stenosis. 2. L1-L2 facet joint arthropathy with at least moderate to severe bilateral neural foraminal stenosi s. 3. L3-L4 moderate spinal canal stenosis secondary to facet joint arthropathy. 4. Moderate multilevel disc degeneration changes.
== END | disposition home or self-care (01) ==
LOC: RADCTMAIN 16:32
PROVIDERS: ATTEND Neurological Surgery
DX: M48.062 Spinal stenosis, lumbar region with neurogenic claudication (principal); M47.816 Spondylosis without myelopathy or radiculopathy, lumbar region; M99.73 Connective tissue and disc stenosis of intervertebral foramina of lumbar region; M51.36 Other intervertebral disc degeneration, lumbar region
CPT/HCPCS: 72131

== ENCOUNTER 2022-04-01 13:15 | Inpatient (IN) | payer MEDICARE, BC ==
--- NOTE | 2022-04-01 14:07 | ED ---
Chest Pain HPI - General Chief Complaint: Chest Pain Stated Complaint: chest pain Time Seen by Provider: 04/01/22 13:45 Source: patient, EMS Mode of arrival: EMS Limitations: no limitations - History of Present Illness Initial Comments: 82-year-old female with multiple medical conditions including coronary artery disease with stent placement, diabetes, hypertension who presents to the emergency department reporting chest pain. States that the pain started 2 hours prior to hospital arrival. She describes it as a pressure sensation over her left chest. It is pleuritic in nature and causes her to be short of breath. Does have lower extremity swelling. No history of DVT or PE. No calf pain. Denies ripping or tearing sensation to her back. She denies fevers, chills or cough. No numbness or tingling in her extremities. Admits to nausea. She she took nitro at home with some improvement in her symptoms. She was given aspirin by EMS. Patient arrives and does have continued pain however much improved from onset. Patient reports 2 recent surgery. States that she had a procedure done at [facility] on her SI joints. She was hospitalized for 2 days. She underwent general anesthesia. Reports that she has not had a bowel movement since the procedure. Has been taking [id number] medications such as Ex- Lax and Metamucil but continues to be unable to have a bowel movement. No other alleviating, precipitating or modifying factors - Related Data Home Medications Medication Instructions Recorded Confirmed Pantoprazole Sodium 40 mg PO DAILY 01/02/15 04/01/22 hydroCHLOROthiazide [Hydrodiuril] 25 mg PO DAILY 01/02/15 04/01/22 Cholecalciferol [Vitamin D3 (25 50 mcg PO DAILY 06/29/21 04/01/22 Mcg = 1000 Iu)] Gabapentin [Neurontin] 400 mg PO QID 06/29/21 04/01/22 Levothyroxine Sodium [Synthroid] 75 mcg PO DAILY 06/29/21 04/01/22 Lisinopril-Hctz 20-25 mg 1 tab PO DAILY 06/29/21 04/01/22 [Zestoretic 20-25] Vit C/E/Zn/Coppr/Lutein/Zeaxan 1 cap PO DAILY 06/29/21 04/01/22 [Preservision Areds 2 Softgel] glipiZIDE XL [Glucotrol XL] 10 mg PO DAILY 06/29/21 04/01/22 ALPRAZolam [Xanax] 0.5 mg PO HS 08/14/21 04/01/22 Cyanocobalamin (Vitamin B-12) 1,000 mcg PO FUNES 08/14/21 04/01/22 [Vitamin B-12] Atorvastatin [Lipitor] 40 mg PO HS 04/01/22 04/01/22 Magnesium Oxide [Mag-Ox] 400 mg PO DAILY 04/01/22 04/01/22 Nortriptyline HCl [Pamelor] 25 mg PO DAILY 04/01/22 04/01/22 Ondansetron [Zofran] 4 mg PO Q8HR PRN 04/01/22 04/01/22 diazePAM 2 mg PO Q4H PRN 04/01/22 04/01/22 diphenhydrAMINE [Benadryl] 50 mg PO HS PRN 04/01/22 04/01/22 methocarbamoL [Robaxin-750] 750 mg PO Q4H PRN 04/01/22 04/01/22 traMADol HCL 20 - 100 mg PO Q6H PRN MDD 8 tabs 04/01/22 04/01/22 Previous Rx's Medication Instructions Recorded Amiodarone [Cordarone] 400 mg PO BID #28 tab 04/06/22 Apixaban [Eliquis] 5 mg PO BID #60 tab 04/06/22 Aspirin 81 mg PO DAILY #39 tab 04/06/22 Metoprolol Succinate (ER) [Toprol 50 mg PO DAILY #30 tab 04/06/22 XL] Nitroglycerin Sl Tabs [Nitrostat] 0.4 mg SUBLINGUAL Q5M PRN #20 tab 04/06/22 Ticagrelor [Brilinta] 90 mg PO BID #60 tab 04/06/22 Allergies Allergy/AdvReac Type Severity Reaction Status Date / Time hydrocodone AdvReac Nausea Verified 04/01/22 15:17 Review of Systems ROS Statement: Those systems with pertinent positive or pertinent negative responses have been documented in the HPI. ROS Other: All systems not noted in ROS Statement are negative. EKG Findings - EKG Comments: EKG Findings:: EKG demonstrates sinus rhythm with a rate of 85. AR interval 227. QRS 99. QTC of 418. No acute ST segment elevations or depressions. 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 skin cancer, right eye limited vision, cyst left eye affects vision., [place] palsey 2020., occasional vertigo. History of Any Multi-Drug Resistant Organisms: None Reported Past Surgical History: Back Surgery, Cholecystectomy, Heart Catheterization With Stent, Joint Replacement Additional Past Surgical History / Comment(s): back sx x2, Total Right Knee, Loop Recorder 2020., Heart cath ([facility])., Past Anesthesia/Blood Transfusion Reactions: Previous Problems w/ Anesthesia, Motion Sickness Additional Past Anesthesia/Blood Transfusion Reaction / Comment(s): states x1 she couldnt breathe when she woke up. Date of Last Stent Placement:: unknown Past Psychological History: Anxiety Smoking Status: Never smoker Past Alcohol Use History: None Reported Past Drug Use History: None Reported - Past Family History Sister(s) Family Medical History: Pulmonary Embolus General Exam Limitations: no limitations General appearance: alert, in no apparent distress Head exam: Present: atraumatic, normocephalic, normal inspection Eye exam: Present: normal appearance, PERRL, EOMI. Absent: scleral icterus, conjunctival injection, periorbital swelling ENT exam: Present: normal exam, mucous membranes moist Neck exam: Present: normal inspection. Absent: tenderness, meningismus, lymph adenopathy Respiratory exam: Present: normal lung sounds bilaterally. Absent: respiratory distress, wheezes, rales, rhonchi, stridor Cardiovascular Exam: Present: regular rate, normal rhythm, normal heart sounds. Absent: systolic murmur, diastolic murmur, rubs, gallop, clicks GI/Abdominal exam: Present: soft, normal bowel sounds. Absent: distended, tenderness, guarding, rebound, rigid Extremities exam: Present: normal inspection, full ROM, normal capillary refill. Absent: tenderness, pedal edema, joint swelling, calf tenderness Back exam: Present: normal inspection Neurological exam: Present: alert, oriented X3, CN II-XII intact Psychiatric exam: Present: normal affect, normal mood Skin exam: Present: warm, dry, intact, normal color. Absent: rash Course Vital Signs 04/01/22 04/01/22 04/01/22 13:35 16:29 20:12 Temperature 97.4 F L Pulse Rate 92 100 94 Respiratory 20 16 18 Rate Blood Pressure 151/69 145/63 134/64 O2 Sat by Pulse 92 L 96 94 L Oximetry 04/01/22 04/02/22 04/02/22 22:00 01:00 03:00 Temperature Pulse Rate 91 88 78 Respiratory 20 20 20 Rate Blood Pressure 108/61 115/78 114/51 O2 Sat by Pulse 95 94 L 93 L Oximetry 04/02/22 04/02/22 04/02/22 05:00 09:00 14:21 Temperature Pulse Rate 71 78 71 Respiratory 18 18 18 Rate Blood Pressure 118/59 120/62 137/65 O2 Sat by Pulse 94 L 98 97 Oximetry Chest Pain MDM - MDM Was pt. sent in by a medical professional or institution (, PA, ASSISTANT WOMENS V[employer]LEY[employer]ACH, urgent care, hospital, or fci...) When possible be specific No Did you speak to anyone other than the patient for history (EMS, parent, family, police, friend...)? What history was obtained from this source EMS Did you review nursing and triage notes (agree or disagree)? Why? I reviewed and agree with nursing and triage notes Were old charts reviewed (outside hosp., previous admission, EMS record, old EKG, old radiological studies, urgent care reports/EKG's, fci records)? Report findings no Differential Diagnosis (chest pain, altered mental status, abdominal pain women, abdominal pain men, vaginal bleeding, weakness, fever, dyspnea, syncope, headache, dizziness, GI bleed, back pain, seizure, CVA, palpatations, mental health)? pleurisy, acs, NSTEMI, STEMI, PE, rib fracture EKG interpreted by me (3pts min.). Yes X-rays interpreted by me (1pt min.). Yes CT interpreted by me (1pt min.). Yes U/S interpreted by me (1pt. min.). None done What testing was considered but not performed or refused? (CT, X-rays, U/S, labs)? Why? None What meds were considered but not given or refused? Why? None Did you discuss the management of the patient with other professionals (professionals i.e. , PA, ASSISTANT [employer]OM[employer]ACH, lab, RT, psych nurse, aids social worker, master machinist, teacher, civilian jail officer, medical case worker)? Give summary admitting physician Was smoking cessation discussed for >3mins.? No Was critical care preformed (if so, how long)? No Were there social determinants of health that impacted care today? How? (Homelessness, low income, unemployed, alcoholism, drug addiction, transportation, low edu. Level, literacy, decrease access to med. care, care home, rehab)? No Was there de-escalation of care discussed even if they declined (Discuss DNR or withdrawal of care, Hospice)? DNR status No What co-morbidities impacted this encounter? (DM, HTN, Smoking, COPD, CAD, Cancer, CVA, ARF, Chemo, Hep., AIDS, mental health diagnosis, sleep apnea, morbid obesity)? ASCAD, CVA, htn, hld Was patient admitted / discharged? Hospital course, mention meds given and route, prescriptions, significant lab abnormalities, going to OR and other pertinent info. Upon arrival patient was placed in room 25. A thorough history and physical exam is performed. 12-lead EKG is obtained. Patient placed on continuous pulse ox and cardiac monitoring. 12-lead EKG demonstrates no acute ST segment elevation. Laboratory studies are conducted. D-dimer is elevated at 1.21. I did perform a CT of the patient's chest which does not demonstrate any PE. KUB demonstrates moderate proximal colonic fecal stasis. I did order lactulose for the patient. Recommended admission order to trend her troponins and get an echo. Patient was agreeable to this. Spoke with Dr. Lord who agreed to admit the patient. Undiagnosed new problem with uncertain prognosis? Yes Drug Therapy requiring intensive monitoring for toxicity (Heparin, Nitro, Insulin, Cardizem)? No Were any procedures done? No Diagnosis/symptom? Acute chest pain Acute, or Chronic, or Acute on Chronic? Acute Uncomplicated (without systemic symptoms) or Complicated (systemic symptoms)? complicated Side effects of treatment? Headache from nitro, bleeding from ASA Exacerbation, Progression, or Severe Exacerbation? no Poses a threat to life or bodily function? How? (Chest pain, [place], [place], pneumonia, PE, COPD, DKA, ARF, appy, cholecystitis, CVA, Diverticulitis, Homicidal, Suici uma, threat to staff... and all critical care pts) yes Disposition Clinical Impression: Chest pain Disposition: ADMITTED IP TO THIS [facility] Condition: Stable Is patient prescribed a controlled substance at d/c from ED?: No Time of Disposition: 19:05 Decision to Admit Reason: Admit from EC Decision Date: 04/01/22 Decision Time: 19:05
[2022-04-01 14:12] LABS: Basophils # (A) 0.1 k/uL (0-0.2); Basophils % (A) 0 %; Eosinophils # (A) 0.1 k/uL (0-0.7); Eosinophils % (A) 1 %; HCT 38.5 % (34.0-46.0); HGB 12.3 gm/dL (11.4-16.0); Lymphocytes # (A) 0.9 k/uL (1.0-4.8); Lymphocytes % (A) 6 %; MCH 28.2 pg (25.0-35.0); MCHC 31.9 g/dL (31.0-37.0); MCV 88.2 fL (80.0-100.0); Monocytes # (A) 0.8 k/uL (0-1.0); Monocytes % (A) 5 %; Neutrophils # (A) 14.2 k/uL (1.3-7.7); Neutrophils % (A) 87 %; Platelet Count 307 k/uL (150-450); RBC 4.36 m/uL (3.80-5.40); RDW 13.6 % (11.5-15.5); WBC 16.4 k/uL (3.8-10.6)
--- NOTE | 2022-04-01 14:26 | XR ---
EXAMINATION TYPE: XR chest 2V DATE OF EXAM: 04/01/2022 COMPARISON: Chest x-ray March 15, 2022 HISTORY: Chest pain. TECHNIQUE: Frontal and lateral views of the chest are obtained. FINDINGS: Lateral view suboptimal due to body habitus. Low lung volumes and cardiomegaly redemonstrat ed with bibasilar horizontal increased opacity is again seen. Slightly more prominent central increas ed markings bilaterally. Overlying loop recorder suspected. The osseous structures are intact. IMPRESSION: Cardiomegaly and low lung volumes with bibasilar linear scarring and/or atelectasis rede monstrated with similar appearance to prior study. Possible new mild central vascular congestion. Cor relate for CHF exacerbation.
[2022-04-01 14:27] LABS: ALT 25 U/L (4-34); AST 23 U/L (14-36); African American GFR (CKD) >90 (>60 ml/min/1.73 sqM); Albumin 3.8 g/dL (3.5-5.0); Alkaline Phosphatase 102 U/L (38-126); Anion Gap 6 mmol/L; Blood Urea Nitrogen 18 mg/dL (7-17); Calcium 8.3 mg/dL (8.4-10.2); Carbon Dioxide 32 mmol/L (22-30); Chloride 90 mmol/L (98-107); Glucose 198 mg/dL (74-99); Lipase 19 U/L (23-300); Magnesium 1.5 mg/dL (1.6-2.3); Non-African American GFR(CKD) 87 (>60 ml/min/1.73 sqM); Sodium 128 mmol/L (137-145); Total Bilirubin 0.5 mg/dL (0.2-1.3); Total Protein 6.4 g/dL (6.3-8.2)
[2022-04-01 14:31] LABS: Potassium 3.8 mmol/L (3.5-5.1)
[2022-04-01 14:33] LABS: INR 0.9 (<1.2); Partial Thromboplastin Time 22.9 sec (22.0-30.0); Prothrombin Time 9.9 sec (9.0-12.0)
[2022-04-01] MEDS ORDERED: MORPHINE SULFATE 4 MG/ML SYRINGE IVP STA (15:11)
--- NOTE | 2022-04-01 15:57 | XR ---
EXAMINATION TYPE: XR KUB DATE OF EXAM: 04/01/2022 3:52 PM CLINICAL HISTORY: Constipation and pain. TECHNIQUE: Two supine KUB images of the abdomen are obtained. COMPARISON: Abdominal x-ray series December 03, 2011. FINDINGS: Gas seen in nondistended stomach. Scattered gas is seen in non-distended small bowel loops. Gas and fecal material is seen in non-distended colon. Moderate to severe prominence of fecal materi al in the right colon with mild to moderate colonic fecal prominence in the transverse colon. Surgica l change right lower lumbar spine uniform prior study. Lung bases not included. IMPRESSION: Moderate proximal colonic fecal stasis. Overall nonobstructive bowel gas pattern.
--- NOTE | 2022-04-01 18:01 | CT ---
EXAMINATION TYPE: CT chest angio for PE CT DLP: 497.6 mGycm, Automated exposure control for dose reduction was used. DATE OF EXAM: 04/01/2022 5:37 PM COMPARISON: None CLINICAL INDICATION:Female, 82 years old with history of chest pain, sob; ELEVATED D-DIMER TECHNIQUE/CONTRAST: CTA scan of the thorax is performed with IV Contrast, patient injected with 100 mL of Isovue 370, pul monary embolism protocol. MIP images are created and reviewed these [facility] FINDINGS: Pulmonary Artery: There is no evidence for a filling defect within the pulmonary vasculature to sugge st acute pulmonary embolism. The pulmonary artery is of normal size. Lungs/Pleura: Low lung volumes with associated atelectasis. No evidence of focal consolidation, pleur al effusion or pneumothorax. Nodule density within the right lung base measuring 4 mm. Airway: Large airways are patent. Heart: The heart is enlarged for size. There is coronary artery atherosclerosis. Vasculature: No evidence of aortic aneurysm. Mediastinum: No gross evidence of adenopathy. Musculoskeletal: No acute osseous abnormalities Soft Tissues: Loop recorder in the left chest wall. Lower neck: No significant findings. Upper Abdomen: Diffuse low-attenuation to the liver parenchyma. Bilateral renal cysts. IMPRESSION: 1. No evidence of pulmonary embolism. 2. Low lung volumes with streaky atelectasis within the lung bases. 3. Mild cardiomegaly. 4. Hepatic steatosis. 5. Right lower lobe 4 mm pulmonary nodule. Consider follow-up in 12 months to ensure stability.
[2022-04-01] MEDS ORDERED: NALOXONE 0.4 MG/ML 1 ML VIAL IV PRN (19:28)
[2022-04-01] MEDS ORDERED: LACTULOSE 20 GM/30 ML CUP PO PRN (19:28)
[2022-04-01] MEDS ORDERED: diphenhydrAMINE 50 MG CAP PO PRN (19:29)
[2022-04-01] MEDS ORDERED: methocarbamoL 750 MG TAB PO PRN (19:29)
[2022-04-01] MEDS ORDERED: diazePAM 2 MG TAB PO PRN (19:29)
[2022-04-01] MEDS ORDERED: ASPIRIN 81 MG PO STA (19:30)
[2022-04-01] MEDS ORDERED: NITROGLYCERIN OINT 1 INCH/GM PACKET TOPICAL STA (19:30)
[2022-04-01] MEDS: ALPRAZolam 0.5 MG TAB PO SCH (20:12)
[2022-04-01] MEDS: ATORVASTATIN 40 MG TAB PO SCH (20:12)
[2022-04-01] MEDS: amLODIPine 2.5 MG TAB PO SCH (20:12)
[2022-04-01] MEDS ORDERED: ONDANSETRON 4 MG/2 ML VIAL IVP PRN (20:31)
[2022-04-01] MEDS ORDERED: ACETAMINOPHEN TAB 325 MG TAB PO PRN (20:31)
[2022-04-01] MEDS ORDERED: CALCIUM CARBONATE 500 MG CHEWABLE PO PRN (20:31)
[2022-04-01] MEDS ORDERED: MAGNESIUM SULFATE-D5W PMX 1 GM in DEXTROSE/WATER 1 100ML.BAG IVPB ONE (22:23)
[2022-04-01] MEDS: GABAPENTIN 400 MG CAP PO SCH (22:27)
[2022-04-01] MEDS: IBUPROFEN 800 MG TAB PO SCH (22:27)
[2022-04-02] MEDS: LEVOTHYROXINE 75 MCG TAB PO SCH (05:51)
[2022-04-02 08:20] LABS: Glucose,Whole Blood 186 mg/dL (70-110)
[2022-04-02] MEDS ORDERED: CAFFEINE CITRATE 60 MG/3 ML VIAL IV PRN (08:22)
[2022-04-02] MEDS ORDERED: REGADENOSON 0.4 MG/5 ML SYRINGE IV PRN (08:22)
[2022-04-02] MEDS ORDERED: AMINOPHYLLINE 500 MG/20 ML VIAL IV PRN (08:22)
[2022-04-02] MEDS: PANTOPRAZOLE 40 MG TABLET PO SCH (09:39)
[2022-04-02] MEDS: IBUPROFEN 800 MG TAB PO SCH ×3 (09:39→23:13)
[2022-04-02] MEDS: hydroCHLOROthiazide 25 MG TAB PO SCH (09:40)
[2022-04-02] MEDS: CHOLECALCIFEROL 25 MCG (1000 IU) TABLET PO SCH (09:40)
[2022-04-02] MEDS: MAGNESIUM OXIDE 400 MG TAB PO SCH (09:40)
[2022-04-02] MEDS: GABAPENTIN 400 MG CAP PO SCH ×4 (09:40→21:39)
[2022-04-02] MEDS: NORTRIPTYLINE 25 MG CAP PO SCH (09:41)
[2022-04-02] MEDS: LISINOPRIL-HCTZ 20-25 MG 1 EACH TAB PO SCH (09:41)
[2022-04-02] MEDS: glipiZIDE 5 MG TAB PO SCH ×2 (09:41→22:35)
[2022-04-02 10:05] LABS: Basophils # (A) 0.03 X 10*3/uL (0.00-0.10); Basophils % (A) 0.2 %; Eosinophils % (A) 0.7 %; HCT 35.1 % (37.2-46.3); HGB 11.3 g/dL (12.0-15.0); Immature Grans, Automated 0.6 %; Lymphocytes % (A) 10.1 %; MCHC 32.2 g/dL (32.0-37.0); MCV 90.2 fL (80.0-97.0); Mean Platelet Volume 9.7 fL (9.5-12.2); Monocytes % (A) 10.1 %; NRBC Per 100 WBC 0 /100 WBCS (0.0-0.0); Neutrophils # (A) 10.79 X 10*3/uL (1.80-7.70); Neutrophils % (A) 78.3 %; Platelet Count 317 X 10*3/uL (140-440); RBC 3.89 X 10*6/uL (4.10-5.20); RDW 13.6 % (11.5-14.5)
--- NOTE | 2022-04-02 10:14 | P.CRDCN ---
History of Present Illness Consult date: 04/02/22 Consult reason: chest pain History of present illness: History of present illness: This is an 82-year-old female patient of Dr. 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 We have been asked to see the patient regarding chest pain. Patient complains of left-sided chest pain when she breathes it hurts. Chest pain is subsequently resolved. She denies shortness of breath, fever or chills, no cough or sputum production. EKG is normal sinus rhythm With no acute ST changes Chest x-ray cardiomegaly with low lung volumes and bibasilar linear scarring and/or atelectasis redemonstrated with similar appearance to prior study. Possible new mild vascular congestion KUB: Moderate proximal colonic fecal stasis. Overall nonobstructive bowel gas pattern. CTA of the chest: No pulmonary embolism. Low lung volumes with streaky atelectasis within the lung bases. Mild cardiomegaly. The past. Ptosis. Right lower lobe 4 mm pulmonary nodule. Recommend twelve-month follow-up WBC 16.4 with repeat 13.8, hemoglobin 11.3. Sodium 128, potassium 3.8, chloride 90, CO2 32, BUN 18 and creatinine 0.56. Blood sugar 198. Troponin negative 3. Magnesium 1.5 Loop recorder 12/2020 Echocardiogram 01/2021 EF 55%, mild left ventricular hypertrophy, trace aortic regurgitation, mild to moderate mitral regurgitation, mild tricuspid regurgitation Lexiscan stress test 12/2020 normal Home cardiac medications: Amlodipine 2.5 mg at bedtime, Lipitor 40 mg at bedtime, Hydrochlorothiazide 25 mg daily, Zestoretic 2024 one tablet daily, levothyroxine 75 g daily Review Of Systems: At the time of my evaluation: Constitutional: No fever, no chills. No weakness, fatigue or lethargy. EENT: No headache. No dizziness. Lungs: No shortness of breath, cough, no sputum production. No wheezing. Cardiovascular: No chest pain, no lower extremity edema. No palpitations. No paroxysmal nocturnal dyspnea. No orthopnea. No lightheadedness or dizziness. No syncopal episodes. Abdominal: No abdominal pain. No nausea, vomiting. No diarrhea. No constipat ion. No bloody or tarry stools. Genitourinary: No dysuria.. No urinary retention. Musculoskeletal: No myalgias. No muscle weakness, no frequent falls. No back pain. No neck pain. Integumentary: No wounds. No rash. No unusual bruising. Neurologic: No aphasia. No facial droop. No change in mentation. No head injury. No headache. Psychiatric: No depression. No anxiety. Endocrine: No abnormal blood sugars. Physical examination: Gen: This is a 82-year-old female. She is resting on ER stretcher and appears to be comfortable and in no acute distress VS: reviewed HEENT: Head is atraumatic, normocephalic. Pupils equal, round. Sclerae is anicteric. NECK: Supple. No JVD. No lymphadenopathy. No thyromegaly. LUNGS: Clear to auscultation. No wheezes or rhonchi. No intercostal retractions. HEART: Regular rate and rhythm. Systolic murmur. ABDOMEN: Soft. No tenderness. EXTREMITIES: No pedal edema. No calf tenderness. NEUROLOGICAL: Patient is awake, alert and oriented x3. Cranial nerves 2 through 12 are grossly intact. Assessment: Chest pain, atypical, acute coronary syndrome ruled out Hypertension Hyperlipidemia Valvular heart disease with aortic and mitral regurgitation History of SVT History of CVA Plan: Resume patient's home cardiac medications Obtain Lexiscan Cardiolite stress test today Obtain 2-D echocardiogram and Doppler study to assess cardiac structure and function If stress test and echocardiogram are within normal limits, patient will be lissette ared for discharge home today and follow-up with Dr. Nunez in the office. Thank you kindly for this consultation. Nurse practitioner note has been reviewed, I agree with documented findings and plan of care. Patient was seen and examined. 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 skin cancer, right eye limited vision, cyst left eye affects vision., [place] palsey 2020., occasional vertigo. History of Any Multi-Drug Resistant Organisms: None Reported Past Surgical History: Back Surgery, Cholecystectomy, Heart Catheterization With Stent, Joint Replacement Additional Past Surgical History / Comment(s): back sx x2, Total Right Knee, Loop Recorder 2020., Heart cath (ph)., Past Anesthesia/Blood Transfusion Reactions: Previous Problems w/ Anesthesia, Motion Sickness Additional Past Anesthesia/Blood Transfusion Reaction / Comment(s): states x1 she couldnt breathe when she woke up. Date of Last Stent Placement:: unknown Past Psychological History: Anxiety Smoking Status: Never smoker Past Alcohol Use History: None Reported Past Drug Use History: None Reported - Past Family History Sister(s) Family Medical History: Pulmonary Embolus Medications and Allergies Home Medications Medication Instructions Recorded Confirmed Type Pantoprazole Sodium 40 mg PO DAILY 01/02/15 04/01/22 History hydroCHLOROthiazide [Hydrodiuril] 25 mg PO DAILY 01/02/15 04/01/22 History Cholecalciferol [Vitamin D3 (25 50 mcg PO DAILY 06/29/21 04/01/22 History Mcg = 1000 Iu)] Gabapentin [Neurontin] 400 mg PO QID 06/29/21 04/01/22 History Levothyroxine Sodium [Synthroid] 75 mcg PO DAILY 06/29/21 04/01/22 History Lisinopril-Hctz 20-25 mg 1 tab PO DAILY 06/29/21 04/01/22 History [Zestoretic 20-25] Vit C/E/Zn/Coppr/Lutein/Zeaxan 1 cap PO DAILY 06/29/21 04/01/22 History [Preservision Areds 2 Softgel] amLODIPine [Norvasc] 2.5 mg PO HS 06/29/21 04/01/22 History glipiZIDE XL [Glucotrol Xl] 10 mg PO DAILY 06/29/21 04/01/22 History ALPRAZolam [Xanax] 0.5 mg PO HS 08/14/21 04/01/22 History Cyanocobalamin (Vitamin B-12) 1,000 mcg PO FUNES 08/14/21 04/01/22 History [Vitamin B-12] Atorvastatin [Lipitor] 40 mg PO HS 04/01/22 04/01/22 History Ibuprofen [Motrin] 800 mg PO Q8H 04/01/22 04/01/22 History Magnesium Oxide [Mag-Ox] 400 mg PO DAILY 04/01/22 04/01/22 History Nortriptyline HCl [Pamelor] 25 mg PO DAILY 04/01/22 04/01/22 History Ondansetron [Zofran] 4 mg PO Q8HR PRN 04/01/22 04/01/22 History diazePAM 2 mg PO Q4H PRN 04/01/22 04/01/22 History diphenhydrAMINE [Benadryl] 50 mg PO HS PRN 04/01/22 04/01/22 History methocarbamoL [Robaxin-750] 750 mg PO Q4H PRN 04/01/22 04/01/22 History traMADol HCL 20 - 100 mg PO Q6H PRN MDD 8 tabs 04/01/22 04/01/22 History Allergies Allergy/AdvReac Type Severity Reaction Status Date / Time hydrocodone AdvReac Nausea Verified 04/01/22 15:17 Physical Exam Vitals: Vital Signs Temp Pulse Resp BP Pulse Ox 04/02/22 05:00 71 18 118/59 94 L 04/02/22 03:00 78 20 114/51 93 L 04/02/22 01:00 88 20 115/78 94 L 04/01/22 22:00 91 20 108/61 95 04/01/22 20:12 94 18 134/64 94 L 04/01/22 16:29 100 16 145/63 96 04/01/22 13:35 97.4 F L 92 20 151/69 92 L Results 04/01/22 14:02 04/01/22 14:02 Cardiac Enzymes 04/01/22 04/01/22 04/01/22 Range/Units 14:02 14:02 21:14 AST 23 (14-36) U/L Troponin I <0.012 <0.012 (0.000-0.034) ng/mL 04/02/22 Range/Units 01:39 AST (14-36) U/L Troponin I 0.024 (0.000-0.034) ng/mL Coagulation 04/01/22 Range/Units 14:02 PT 9.9 (9.0-12.0) sec APTT 22.9 (22.0-30.0) sec CBC 04/01/22 Range/Units 14:02 WBC 16.4 H (3.8-10.6) k/uL RBC 4.36 (3.80-5.40) m/uL Hgb 12.3 (11.4-16.0) gm/dL Hct 38.5 (34.0-46.0) % Plt Count 307 (150-450) k/uL Comprehensive Metabolic Panel 04/01/22 Range/Units 14:02 Sodium 128 L (137-145) mmol/L Potassium 3.8 (3.5-5.1) mmol/L Chloride 90 L (98-107) mmol/L Carbon Dioxide 32 H (22-30) mmol/L BUN 18 H (7-17) mg/dL Creatinine 0.56 (0.52-1.04) mg/dL Glucose 198 H (74-99) mg/dL Calcium 8.3 L (8.4-10.2) mg/dL AST 23 (14-36) U/L ALT 25 (4-34) U/L Alkaline Phosphatase 102 (38-126) U/L Total Protein 6.4 (6.3-8.2) g/dL Albumin 3.8 (3.5-5.0) g/dL Current Medications Generic Name Dose Route Start Last Admin Trade Name Freq PRN Reason Stop Dose Admin Acetaminophen 650 mg 04/01/22 20:31 Acetaminophen Tab 325 Mg Tab PO Q6HR PRN Mild Pain or Fever > 100.5 Alprazolam 0.5 mg 04/01/22 21:00 04/01/22 20:12 Alprazolam 0.5 Mg Tab PO 0.5 mg HS MARLEY Administration Amlodipine Besylate 2.5 mg 04/01/22 21:00 04/01/22 20:12 Amlodipine 2.5 Mg Tab PO 2.5 mg HS MARLEY Administration Atorvastatin Calcium 40 mg 04/01/22 21:00 04/01/22 20:12 Atorvastatin 40 Mg Tab PO 40 mg HS MARLEY Administration Calcium Carbonate/Glycine 1,000 mg 04/01/22 20:31 Calcium Carbonate 500 Mg Chewable PO Q4HR PRN Dyspepsia Cholecalciferol 50 mcg 04/02/22 09:00 Cholecalciferol 25 Mcg (1000 Iu) Tablet PO DAILY MARLEY Cyanocobalamin 1,000 mcg 04/07/22 09:00 Cyanocobalamin 500 Mcg Tab PO FUNES [facility] Diazepam 2 mg 04/01/22 19:29 Diazepam 2 Mg Tab PO Q4H PRN Anxiety Diphenhydramine HCl 50 mg 04/01/22 19:29 Diphenhydramine 50 Mg Cap PO HS PRN Allergy Symptoms Gabapentin 400 mg 04/01/22 22:00 04/01/22 22:27 Gabapentin 400 Mg Cap PO 400 mg QID [facility] Administration Glipizide 5 mg 04/02/22 09:00 Glipizide 5 Mg Tab PO BID [facility] Lisinopril/HCTZ 1 each 04/02/22 09:00 Lisinopril-Hctz 20-25 Mg 1 Each Tab PO DAILY [facility] Hydrochlorothiazide 25 mg 04/02/22 09:00 Hydrochlorothiazide 25 Mg Tab PO DAILY [facility] Ibuprofen 800 mg 04/01/22 22:00 04/01/22 22:27 Ibuprofen 800 Mg Tab PO 800 mg TID [facility] Administration Lactulose 20 gm 04/01/22 19:28 04/01/22 22:34 Lactulose 20 Gm/30 Ml Cup PO 20 gm DAILY PRN Administration Constipation Levothyroxine Sodium 75 mcg 04/02/22 06:30 04/02/22 05:51 Levothyroxine 75 Mcg Tab PO 75 mcg DAILY@0630 [facility] Administration Magnesium Oxide 400 mg 04/02/22 09:00 Magnesium Oxide 400 Mg Tab PO DAILY [facility] Methocarbamol 750 mg 04/01/22 19:29 Methocarbamol 750 Mg Tab PO Q4H PRN Muscle Spasm Naloxone HCl 0.2 mg 04/01/22 19:28 Naloxone 0.4 Mg/Ml 1 Ml Vial IV Q2M PRN Opioid Reversal Nortriptyline HCl 25 mg 04/02/22 09:00 Nortriptyline 25 Mg Cap PO DAILY [facility] Ondansetron HCl 4 mg 04/01/22 20:31 Ondansetron 4 Mg/2 Ml Vial IVP Q8HR PRN Nausea And Vomiting Pantoprazole Sodium 40 mg 04/02/22 07:30 Pantoprazole 40 Mg Tablet PO AC-BRKFST [facility] 04/01/22 14:02 04/01/22 14:02
[2022-04-02 10:33] LABS: Anion Gap 9.1 mmol/L (10.00-18.00); BUN/Creat Ratio 19.38 Ratio (12.00-20.00); Blood Urea Nitrogen 15.5 mg/dL (9.0-27.0); Calcium 8.8 mg/dL (8.7-10.3); Carbon Dioxide 31.9 mmol/L (20.0-27.5); Non-African American GFR(CKD) 68.2 (60.0-200.0); Potassium 3.7 mmol/L (3.5-5.5)
--- NOTE | 2022-04-02 11:14 | CA ---
Transthoracic Echo Report Name: Leti Quispe Age: 82 Gender: F : 1940 Exam Date: 04/02/2022 09:19 Exam Location: [place] [facility] Ht (in): 62 Wt (lb): 190 Ordering Physician: Rina Lind DO Attending/Referring Phys: [id number], Lelo [employer] Laurie Wei, CHANDA Procedure CPT: Indications: Chest Pain Cardiac Hx: Technical Quality: Contrast 1: Total Dose (mL): Contrast 2: Total Dose (mL): MEASUREMENTS (Male / Female) Normal Values 2D ECHO LV Diastolic Diameter PLAX 4.3 cm 4.2 - 5.9 / 3.9 - 5.3 cm LV Systolic Diameter PLAX 3.3 cm IVS Diastolic Thickness 1.0 cm 0.6 - 1.0 / 0.6 - 0.9 cm LVPW Diastolic Thickness 1.4 cm 0.6 - 1.0 / 0.6 - 0.9 cm LV Relative Wall Thickness 0.6 RV Internal Dim ED PLAX 3.2 cm LA Systolic Diameter LX 3.5 cm 3.0 - 4.0 / 2.7 - 3.8 cm LA Volume 66.7 cm??? 18 - 58 / 22 - 52 cm??? M-MODE Aortic Root Diameter MM 3.0 cm LA Systolic Diameter MM 5.0 cm LA Ao Ratio MM 1.7 MV E Point Septal Separation 0.2 cm AV Cusp Separation MM 1.1 cm DOPPLER MV Area PHT 2.0 cm??? Mitral E Point Velocity 67.2 cm/s Mitral A Point Velocity 95.8 cm/s Mitral E to A Ratio 0.7 MV Deceleration Time 387.9 ms MV E' Velocity 5.9 cm/s Mitral E to MV E' Ratio 11.4 TR Peak Velocity 167.8 cm/s TR Peak Gradient 11.3 mmHg Right Ventricular Systolic Press 16.3 mmHg FINDINGS Left Ventricle Left ventricular ejection fraction is estimated at 55%. Left ventricular cavity size normal. Mildly increased left ventricular wall thickness. Right Ventricle Normal right ventricular size and function. Right ventricular systolic pressure within normal limits. Right Atrium Normal right atrial size. Left Atrium Moderately increased left atrial volume. Mitral Valve Structurally normal mitral valve. Mild mitral regurgitation. Aortic Valve Trileaflet aortic valve. Tricuspid Valve Structurally normal tricuspid valve. Pulmonic Valve Structurally normal pulmonic valve. Pericardium Normal pericardium. Aorta Normal size aortic root and proximal ascending aorta. CONCLUSIONS Normal LV systolic function Left atrial enlargement Mild mitral regurgitation Previewed by: Dr. Lincoln Jacobsen MD (Electronically Signed) Final Date: 02 April 2022 11:13
--- NOTE | 2022-04-02 11:56 | CA ---
Lexiscan Nuclear Stress Test Report Name: Leti Quispe Exam Date: 04/02/2022 11:15 Exam Location: [facility] [facility] Ht (in): 62 Wt (lb): 190 BSA: 1.87 Ordering Phys: Amanda Cruz Referring Phys: BRIGID, Technologist: MARK,, Age: 82 Gender: F : 1940 Procedure CPT: Indications: Reflex order-Stress test ICD-10 Codes: Patient History: Chest pain Medications: Meds past 24 hrs: Pretest Chest Pain: STRESS TEST Lexiscan Protocol Exercise Duration (min:sec): 01:[address] Depressions (mm): Angina Score: Gonsales Score: Resting HR (bpm): 66 Peak HR (bpm): 80 Resting BP (mmHg): 128 / 63 Peak BP (mmHg): 122 / 57 MPHR: 137 Target HR: 116 % MPHR: 58 METS: 1.0 Total Dose: Peak Dose: Atropine: Double Product: 9760 BP Response: Stress Termination: INFUSION COMPLETE Stress Symptoms: NO SYMPTOMS Stress Summary: ECG ANALYSIS Resting ECG: Baseline EKG shows sinus rhythm prior inferior wall myocardial infarction Stress ECG: Patient was given intravenous Lexiscan as a protocol did not have chest pain or diagnostic ST segment depression CONCLUSIONS Negative stress test by EKG criteria Cardiolite portion of the stress test will be reported separately Dr. Lincoln Jacobsen MD (Electronically Signed) Final Date: 02 April 2022 11:55
--- NOTE | 2022-04-02 14:02 | NM ---
EXAMINATION TYPE: NM stress lexiscan cardiolite DATE OF EXAM: 04/02/2022 COMPARISON: NONE HISTORY: 82-year-old female with chest pain TECHNIQUE: After the intravenous administration of 9.3 mCi Tc 99m Sestamibi - Cardiolite resting SPE CT images acquired 120 minutes post injection. The patient received 0.4mg Lexiscan, 26.7 mCi Tc 99m Sestamibi - Stress images obtained [address] injection FINDINGS: Review of stress and rest SPECT images demonstrates areas of fixed perfusion abnormality apical anter oseptal wall and mid lateral wall. However, both of these small perfusion defects accentuate on stres s imaging. Gated analysis shows normal wall motion, though, there may be limited augmentation of the apical anteroseptal wall. Estimated left ventricular ejection fraction of 71 %. TID is calculated at 0.73, within normal limits. 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
[2022-04-02] MEDS ORDERED: ALPRAZolam 0.25 MG TAB PO PRN (14:20)
[2022-04-02] MEDS ORDERED: ALPRAZolam 0.5 MG TAB PO PRN (14:20)
[2022-04-02] MEDS ORDERED: DILTIAZEM DRIP BOLUS FROM BAG 1 MG SOLN IV ONE (18:50)
--- NOTE | 2022-04-02 20:03 | P.HPIM ---
History of Present Illness H&P Date: 04/02/22 Chief Complaint: Chest pain This is a pleasant 82-year-old patient who follows with Dr. Mueller. Chronic stable medical conditions include CAD with stent several years ago, diabetes, GERD, hypertension, osteoarthritis, obstructive sleep apnea, hypothyroid, peripheral neuropathy, obstructive sleep apnea with CPAP, Patient is accompanied by her in the ER. Patient developed left precordial pain. Some worsening with breathing. Started 10:00 yesterday morning. It's radiate to the neck. Some shortness of breath. No perspiration. No fever no chills. No cough. Review of systems: GEN.: Tired EYES: Some decrease in vision HEENT: None NECK: None RESPIRATORY: As above CARDIOVASCULAR: As above GASTROINTESTINAL: None GENITOURINARY: None MUSCULOSKELETAL: Joint pain LYMPHATICS: None HEMATOLOGICAL: None PSYCHIATRY: None NEUROLOGICAL: None Social history: . Does not smoke or drink alcohol. Physical examination: VITAL SIGNS: 97.4, 92, 20, 145/63, 96% on 2J on presentation GENERAL: BMI 34.8, declining weight awake, tired. EYES: Pupils equal. Conjunctiva normal. HEENT: External appearance of nose and ears normal, oral cavity grossly normal. NECK: JVD not raised; masses not palpable. HEART: First and second heart sounds are normal; no edema. LUNGS: Respiratory rate normal; clear to auscultation. ABDOMEN: Soft, nontender, liver spleen not palpable, no masses palpable. PSYCH: Alert and oriented x3; mood and affect normal. MUSCULOSKELETAL:No Clubbing/cyanosis;muscles-grossly intact. OA NEUROLOGICAL: Cranial nerves grossly intact; no facial asymmetry, power and sensation grossly intact. LYMPHATICS: No lymph nodes palpable in the axilla and neck INVESTIGATIONS, reviewed in the clinical context: White count 13.8 hemoglobin 11.3 platelets 317 sodium 129 potassium 3.7 creatinine 0.8 Troponin I less than 0.012, 0.024 EKG tracing personally reviewed by me-atrial fibrillation. Rate 84 Chest x-ray film-personally reviewed by me-cardiomegaly. Questionable venous prominence versus infiltrate 2-D echocardiogram: EF 55%. Assessment plan: -Anterior chest wall pain. Consider unstable angina. Patient has known CAD. Cardiology consulted. 4 nuclear stress test. IV heparin -CAD with stent -Diabetes mellitus type 2, on oral hypoglycemic Follow Accu-Cheks -GERD PPI -Essential hypertension Amlodipine 2.5 mg daily at bedtime Zestoretic -Primary osteoarthritis Pain medications as needed -Obstructive sleep apnea uses CPAP -IV heparin monitoring Follow PTT -Hypothyroid Synthroid 75 g -Diabetic peripheral neuropathy Neurontin 400 mg 4 times a day Cartilage E consulted. Nuclear stress test. Other medications to continue. 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 skin cancer, right eye limited vision, cyst left eye affects vision., [place] palsey 2020., occasional vertigo. History of Any Multi-Drug Resistant Organisms: None Reported Past Surgical History: Back Surgery, Cholecystectomy, Heart Catheterization With Stent, Joint Replacement Additional Past Surgical History / Comment(s): back sx x2, Total Right Knee, Loop Recorder 2020., Heart cath ([facility])., Past Anesthesia/Blood Transfusion Reactions: Previous Problems w/ Anesthesia, Motion Sickness Additional Past Anesthesia/Blood Transfusion Reaction / Comment(s): states x1 she couldnt breathe when she woke up. Date of Last Stent Placement:: unknown Past Psychological History: Anxiety Smoking Status: Never smoker Past Alcohol Use History: None Reported Past Drug Use History: None Reported - Past Family History Sister(s) Family Medical History: Pulmonary Embolus Medications and Allergies Home Medications Medication Instructions Recorded Confirmed Type Pantoprazole Sodium 40 mg PO DAILY 01/02/15 04/01/22 History hydroCHLOROthiazide [Hydrodiuril] 25 mg PO DAILY 01/02/15 04/01/22 History Cholecalciferol [Vitamin D3 (25 50 mcg PO DAILY 06/29/21 04/01/22 History Mcg = 1000 Iu)] Gabapentin [Neurontin] 400 mg PO QID 06/29/21 04/01/22 History Levothyroxine Sodium [Synthroid] 75 mcg PO DAILY 06/29/21 04/01/22 History Lisinopril-Hctz 20-25 mg 1 tab PO DAILY 06/29/21 04/01/22 History [Zestoretic 20-25] Vit C/E/Zn/Coppr/Lutein/Zeaxan 1 cap PO DAILY 06/29/21 04/01/22 History [Preservision Areds 2 Softgel] amLODIPine [Norvasc] 2.5 mg PO HS 06/29/21 04/01/22 History glipiZIDE XL [Glucotrol Xl] 10 mg PO DAILY 06/29/21 04/01/22 History ALPRAZolam [Xanax] 0.5 mg PO HS 08/14/21 04/01/22 History Cyanocobalamin (Vitamin B-12) 1,000 mcg PO FUNES 08/14/21 04/01/22 History [Vitamin B-12] Atorvastatin [Lipitor] 40 mg PO HS 04/01/22 04/01/22 History Ibuprofen [Motrin] 800 mg PO Q8H 04/01/22 04/01/22 History Magnesium Oxide [Mag-Ox] 400 mg PO DAILY 04/01/22 04/01/22 History Nortriptyline HCl [Pamelor] 25 mg PO DAILY 04/01/22 04/01/22 History Ondansetron [Zofran] 4 mg PO Q8HR PRN 04/01/22 04/01/22 History diazePAM 2 mg PO Q4H PRN 04/01/22 04/01/22 History diphenhydrAMINE [Benadryl] 50 mg PO HS PRN 04/01/22 04/01/22 History methocarbamoL [Robaxin-750] 750 mg PO Q4H PRN 04/01/22 04/01/22 History traMADol HCL 20 - 100 mg PO Q6H PRN MDD 8 tabs 04/01/22 04/01/22 History Allergies Allergy/AdvReac Type Severity Reaction Status Date / Time hydrocodone AdvReac Nausea Verified 04/01/22 15:17 Physical Exam Vitals: Vital Signs Temp Pulse Resp BP Pulse Ox 04/02/22 09:00 78 18 120/62 98 04/02/22 05:00 71 18 118/59 94 L 04/02/22 03:00 78 20 114/51 93 L 04/02/22 01:00 88 20 115/78 94 L 04/01/22 22:00 91 20 108/61 95 04/01/22 20:12 94 18 134/64 94 L 04/01/22 16:29 100 16 145/63 96 04/01/22 13:35 97.4 F L 92 20 151/69 92 L Results CBC & Chem 7: 04/02/22 01:46 04/02/22 01:45 Labs: Abnormal Lab Results - Last 24 Hours (Table) 04/01/22 04/01/22 04/01/22 Range/Units 14:02 14:02 15:12 WBC 16.4 H (3.8-10.6) k/uL RBC (4.10-5.20) X 10*6/uL Hgb (12.0-15.0) g/dL Hct (37.2-46.3) % Immature Gran # (0.00-0.04) X 10*3/uL Neutrophils # 14.2 H (1.3-7.7) k/uL Lymphocytes # 0.9 L (1.0-4.8) k/uL Monocytes # (0.20-1.00) X 10*3/uL D-Dimer 1.21 H (<0.60) mg/L FEU Sodium 128 L (137-145) mmol/L Chloride 90 L (98-107) mmol/L Carbon Dioxide 32 H (22-30) mmol/L Anion Gap (10.00-18.00) mmol/L BUN 18 H (7-17) mg/dL Glucose 198 H (74-99) mg/dL POC Glucose (mg/dL) (70-110) mg/dL Calcium 8.3 L (8.4-10.2) mg/dL Magnesium 1.5 L (1.6-2.3) mg/dL Lipase 19 L (23-300) U/L 04/02/22 04/02/22 04/02/22 Range/Units 01:45 01:46 08:19 WBC 13.80 H (3.8-10.6) k/uL RBC 3.89 L (4.10-5.20) X 10*6/uL Hgb 11.3 L (12.0-15.0) g/dL Hct 35.1 L (37.2-46.3) % Immature Gran # 0.08 H (0.00-0.04) X 10*3/uL Neutrophils # 10.79 H (1.3-7.7) k/uL Lymphocytes # (1.0-4.8) k/uL Monocytes # 1.40 H (0.20-1.00) X 10*3/uL D-Dimer (<0.60) mg/L FEU Sodium 129 L (137-145) mmol/L Chloride 88 L (98-107) mmol/L Carbon Dioxide 31.9 H (22-30) mmol/L Anion Gap 9.10 L (10.00-18.00) mmol/L BUN (7-17) mg/dL Glucose 211 H (74-99) mg/dL POC Glucose (mg/dL) 186 H (70-110) mg/dL Calcium (8.4-10.2) mg/dL Magnesium (1.6-2.3) mg/dL Lipase (23-300) U/L
[2022-04-02] MEDS: HEPARIN SOD,PORK IN 0.45% NACL 25,000 UNIT in 0.45% NACL 1 250ML.BAG IV SCH (20:07)
[2022-04-02] MEDS: DILTIAZEM 125 MG in SODIUM CHLORIDE 0.9% 100 ML IV SCH (20:08)
[2022-04-02] MEDS: amLODIPine 2.5 MG TAB PO SCH (20:32)
[2022-04-02 20:44] LABS: INR 0.9 (<1.2)
[2022-04-02 20:54] LABS: Partial Thromboplastin Time 18.9 sec (22.0-30.0)
[2022-04-02] MEDS: ALPRAZolam 0.5 MG TAB PO SCH (21:39)
[2022-04-02] MEDS: ATORVASTATIN 40 MG TAB PO SCH (21:39)
[2022-04-02 21:55] LABS: Glucose,Whole Blood 190 mg/dL (70-110)
[2022-04-03 03:19] LABS: Basophils % (A) 0 %; Eosinophils # (A) 0.3 k/uL (0-0.7); Eosinophils % (A) 3 %; Lymphocytes % (A) 21 %; MCH 28.8 pg (25.0-35.0); MCHC 32.5 g/dL (31.0-37.0); MCV 88.5 fL (80.0-100.0); Mean Platelet Volume 7.3; Monocytes # (A) 0.6 k/uL (0-1.0); Monocytes % (A) 7 %; Neutrophils # (A) 6.3 k/uL (1.3-7.7); Neutrophils % (A) 66 %; Platelet Count 326 k/uL (150-450); RBC 4.18 m/uL (3.80-5.40); RDW 13.8 % (11.5-15.5); WBC 9.6 k/uL (3.8-10.6)
[2022-04-03 03:24] LABS: Prothrombin Time 10.3 sec (9.0-12.0)
[2022-04-03] MEDS: HEPARIN SODIUM 1,000 UN/ML (10ML VL) IV PRN (03:45)
[2022-04-03] MEDS ORDERED: ATORVASTATIN 80 MG TAB PO ONE (05:00)
[2022-04-03] MEDS ORDERED: ASPIRIN 325 MG TAB PO ONE (05:00)
[2022-04-03] MEDS: MAGNESIUM OXIDE 400 MG TAB PO SCH (06:03)
[2022-04-03] MEDS: PANTOPRAZOLE 40 MG TABLET PO SCH (06:03)
[2022-04-03] MEDS: CHOLECALCIFEROL 25 MCG (1000 IU) TABLET PO SCH (06:04)
[2022-04-03] MEDS: LEVOTHYROXINE 75 MCG TAB PO SCH (06:04)
[2022-04-03] MEDS: GABAPENTIN 400 MG CAP PO SCH ×4 (06:04→21:26)
[2022-04-03] MEDS ORDERED: HEPARIN SODIUM,PORCINE 10,000 UNIT in SODIUM CHLORIDE 0.9% 1,000 ML IRRIGATION PRN (07:00)
[2022-04-03] MEDS ORDERED: HEPARIN SODIUM,PORCINE 2,500 UNIT in SODIUM CHLORIDE 0.9% 250 ML IRRIGATION PRN (07:00)
[2022-04-03 07:18] LABS: Glucose,Whole Blood 187 mg/dL (70-110)
[2022-04-03] MEDS: hydroCHLOROthiazide 25 MG TAB PO SCH (08:11)
[2022-04-03] MEDS: IBUPROFEN 800 MG TAB PO SCH ×3 (08:11→21:25)
[2022-04-03] MEDS: NORTRIPTYLINE 25 MG CAP PO SCH (08:11)
[2022-04-03] MEDS: LISINOPRIL-HCTZ 20-25 MG 1 EACH TAB PO SCH (08:11)
[2022-04-03] MEDS ORDERED: VERAPAMIL 2.5 MG/ML 2 ML AMP ONE (10:51)
[2022-04-03] MEDS ORDERED: MIDAZOLAM 2 MG/2 ML VIAL IV ONE (10:56)
[2022-04-03] MEDS ORDERED: LIDOCAINE 1% INJ 10MG/ML (5 ML VIAL-PF) SQ ONE (10:57)
[2022-04-03] MEDS ORDERED: VERAPAMIL SYRINGE (5 MG/10 ML) INTRAARTER ONE (10:58)
[2022-04-03] MEDS ORDERED: IV FLUID CONTINUATION 1,000 ML IV ONE (11:08)
[2022-04-03] MEDS: HEPARIN SODIUM 1,000 UN/ML (10ML VL) IV ONE ×3 (11:17→12:17)
[2022-04-03] MEDS ORDERED: MIDAZOLAM 2 MG/2 ML VIAL IVP ONE (11:51)
[2022-04-03] MEDS ORDERED: NITROGLYCERIN SL TABS 0.4 MG TAB SUBLINGUAL ONE ×2 (11:52→11:53)
[2022-04-03] MEDS ORDERED: MORPHINE SULFATE 4 MG/ML SYRINGE ONE ×2 (11:54→12:03)
[2022-04-03] MEDS ORDERED: FUROSEMIDE 10 MG/ML 4 ML VIAL ONE (11:54)
[2022-04-03] MEDS ORDERED: FUROSEMIDE 10 MG/ML 4 ML VIAL IVP ONE (11:55)
[2022-04-03] MEDS: MORPHINE SULFATE 4 MG/ML SYRINGE IVP ONE ×2 (11:55→12:05)
[2022-04-03] MEDS ORDERED: IOPAMIDOL-370 125ML BTL INJ ONE (12:00)
[2022-04-03] MEDS ORDERED: MORPHINE SULFATE 4 MG/ML SYRINGE IVP ONE (12:05)
[2022-04-03] MEDS ORDERED: HYDROmorphone 0.5 MG/0.5 ML SYRINGE IVP ONE (12:17)
[2022-04-03] MEDS: NITROGLYCERIN 1000MCG/10ML SYRINGE INTRACORON ONE ×2 (12:20→12:38)
[2022-04-03] MEDS ORDERED: TICAGRELOR 90 MG TAB ONE (12:42)
[2022-04-03] MEDS ORDERED: IOPAMIDOL-370 100ML BTL INJ ONE (12:45)
[2022-04-03] MEDS ORDERED: TICAGRELOR 90 MG TAB PO ONE (12:45)
[2022-04-03] MEDS ORDERED: HEPARIN SODIUM 1,000 UN/ML (10ML VL) IVP ONE (12:47)
[2022-04-03] MEDS ORDERED: RX INFO: IV CONTRAST WAS GIVEN 1 EACH MISC MISCELLANE PRN (13:21)
[2022-04-03] MEDS ORDERED: MAG HYDROX/AL HYDROX/SIMETH 30 ML CUP PO PRN (13:21)
[2022-04-03] MEDS ORDERED: ATROPINE SULFATE 0.1 MG/ML 10ML SYRINGE IV PRN (13:21)
--- NOTE | 2022-04-03 13:27 | P.PCN ---
Date of Procedure: 04/03/22 Operative Findings: CARDIAC CATHETERIZATION AND PERCUTANEOUS CORONARY INTERVENTION PERFORMING PHYSICIAN: Yung Nunez MD, [facility] PROCEDURE PERFORMED: 1. Selective right and left coronary angiogram 2. Successful stenting of distal LAD using 2.0 x 30 mm Somerset KUMAR with an excellent angiographic results 3. Successful stenting of the mid LAD using 3.0 x 38 mm Xience KUMAR which with an excellent angiographic results 4. Successful stenting of the proximal LAD using 3.5 x 23 mm Xience KUMAR with an excellent angiographic results 5. Intravascular ultrasound of the left anterior descending artery INDICATION: This is an 82-year-old female patient with coronary artery disease as well as hypertension and dyslipidemia who presented to the hospital with chest discomfort and underwent myocardial perfusion imaging stress test that came in to be abnormal showing an anterior and lateral ischemia. In the light of that a heart catheterization was advised COMPLICATION: None APPROACH: Right radial artery LEVEL OF SEDATION: Moderate with the sedation time off 116 minutes PROCEDURE DESCRIPTION: After obtaining an informed consent the patient was brought to the cardiac veterinarian laboratory animal care. The right radial artery was cannulated using micropuncture technique under ultrasound guidance, the micropuncture wire passed easily then I placed 6-Egyptian sheath at the right radial artery. I did after that the patient 2 mg of verapamil intra-arterial and anticoagulation with heparin was initiated with continuous ECG monitoring. For the diagnostic heart catheterization I did not do any heparin because the patient was receiving heparin which was stopped befo re she came into the room. Selective right and left coronary angiogram performed using JR4 and JL 3.5 catheters. Left heart catheterization was not performed. After that I did intervene on the LAD. The procedure was completed was no complication SELECTIVE CORONARY ANGIOGRAM: The right coronary artery: Large caliber vessel and a dominant vessel. The RCA has mild disease only. Distally bifurcates into PDA and PLV branches both appeared to have mild disease only. Left main: Is angiographically normal. Bifurcates into an LCx and LAD The left circumflex: Large caliber vessel nondominant vessel. The LCx in the midportion by the bifurcation of a large OM has intermediate lesion appeared to be in the range of 60%. The ostial LCx has a lesion appeared to be in the range of 40-50%. The left anterior descending artery: The proximal LAD appeared to be angiographically normal. The mid LAD by the takeoff of the diagonal branch has a lesion appears to be long lesion/tubular lesion in the range of 80%. The lesion is fairly calcified. The LAD gives rises into a diagonal branch which appears to have mild disease only. PCI OF THE LAD: Anticoagulation was initiated using heparin with continuous ACT monitoring. The left main was engaged using a CLS 3 guiding catheter. I did wire the LAD using a whisper wire. I did balloon angioplasty of the mid and distal LAD using 2.0 x 12 mm balloon. I did multiple PTCA ballooning for the whole segment from the mid to the proximal left anterior descending artery. Attempting advancing 2.5 mm noncompliant balloon was unsuccessful. It was unsuccessful in spite of using guide liner. Attempting advancing 2.0 mm balloon was successful with adjunctive use of blood liner. I did PTCA ballooning for the whole mid and proximal portion of the left anterior descending artery using a 2.0 x 15 mm noncompliant balloon. Unfortunately while withdrawing the balloon angioplasty and pulling the balloon out we lost the wire for the mid left anterior descending artery. Attempting advancing the wire was unsuccessful and probably induced dissection in the mid left anterior descending artery where the LAD make a curve at that point. Wiring the LAD was attempted using a whisper wire was unsuccessful and then using a BMW wire was also unsuccessful but finally I was able to wire the LAD and across the dissected segment using a whisper wire with adjunctive use of super cross catheter. After that I advanced a super cross catheter distal to the dissected segment. At that point I did pull the whisper wire out and I placed a run-through wire. At that point I did again dual balloon angioplasty of the distal left anterior descending artery where the dissection was located using 2.0 mm noncompliant balloon. Therefore the mid and proximal left anterior descending artery I did PTCA ballooning using 2.5 mm noncompliant balloon. I did intravascular ultrasound of the LAD and that showed a diameter of the mid LAD about 3 mm and the proximal LAD about 4 mm. I was able to advance 2.0 x 30 mm Somerset stent to the distal left anterior descending artery to cover the disse cted segment. The stent was positioned under fluoroscopy guidance and deployed under 14 sheng for 20 seconds. For the mid LAD I placed 3.0 x 38 mm stent where the stent was again positioned under fluoroscopy guidance and deployed under its nominal pressure. For the very proximal LAD I placed 3.5 x 23 mm stent where the stent again was positioned under fluoroscopy guidance and deployed under its nominal pressure. An angiogram was performed after that. At that point I decided to post-dilate the proximal stent using 4 mm noncompliant balloon which was inflated under 18 sheng for 20 seconds. Final angiogram showed good angiographic results was TREMAYNE-3 flow in the LAD and the procedure was completed there was no complication. CONCLUSION: 1. Severe disease involving the mid left anterior descending artery with a calcified and tubular lesion. I did successful stenting of the LAD as described above 2. Intermediate disease involving the circumflex coronary artery POSTPROCEDURE MANAGEMENT: #1 dual antiplatelet therapy using aspirin and Brilinta for 12 month #2 aggressive cholesterol control #3 follow-up with the patient
[2022-04-03] MEDS ORDERED: SODIUM CHLORIDE 0.9% 1,000 ML in EMPTY BAG 1 BAG IV SCH (13:30)
[2022-04-03] MEDS: DILTIAZEM 125 MG in SODIUM CHLORIDE 0.9% 100 ML IV SCH ×2 (13:55→20:14)
[2022-04-03] MEDS: glipiZIDE 5 MG TAB PO SCH ×2 (13:56→17:39)
[2022-04-03 14:42] VITALS: BMI 34.7
[2022-04-03 17:34] LABS: Glucose,Whole Blood 202 mg/dL (70-110)
[2022-04-03] MEDS: HEPARIN SOD,PORK IN 0.45% NACL 25,000 UNIT in 0.45% NACL 1 250ML.BAG IV SCH (20:13)
[2022-04-03 20:39] LABS: Glucose,Whole Blood 214 mg/dL (70-110)
[2022-04-03] MEDS: ZOLPIDEM 5 MG TAB PO PRN (21:25)
[2022-04-03] MEDS: ATORVASTATIN 40 MG TAB PO SCH (21:25)
[2022-04-03] MEDS: TICAGRELOR 90 MG TAB PO SCH (21:25)
[2022-04-03] MEDS: amLODIPine 2.5 MG TAB PO SCH (21:25)
[2022-04-03] MEDS: DICLOFENAC SODIUM GEL 100 GM TUBE TOPICAL SCH (21:26)
--- NOTE | 2022-04-03 23:36 | P.PN ---
Progress Note - Text Progress Note Date: 04/03/22 Chief Complaint: Chest pain This is a pleasant 82-year-old patient who follows with Dr. Mueller. Chronic stable medical conditions include CAD with stent several years ago, diabetes, GERD, hypertension, osteoarthritis, obstructive sleep apnea, hypothyroid, peripheral neuropathy, obstructive sleep apnea with CPAP, Patient is accompanied by her in the ER. Patient developed left precordial pain. Some worsening with breathing. Started 10:00 yesterday morning. It's radiate to the neck. Some shortness of breath. No perspiration. No fever no chills. No cough. April 03: Patient has a positive nuclear stress test. Underwent cardiac catheterization today. Stent to LAD. Postprocedure patient stable. No neck symptoms. Active Medications Acetaminophen (Acetaminophen Tab 325 Mg Tab) 650 mg PO Q6HR PRN PRN Reason: Mild Pain or Fever > 100.5 Al Hydroxide/Mg Hydroxide (Mag Hydrox/Al Hydrox/Simeth 30 Ml Cup) 30 ml PO Q4HR PRN PRN Reason: Heartburn Alprazolam (Alprazolam 0.25 Mg Tab) 0.25 mg PO Q6HR PRN PRN Reason: Mild Anxiety Alprazolam (Alprazolam 0.5 Mg Tab) 0.5 mg PO Q6HR PRN PRN Reason: Moderate Anxiety Amlodipine Besylate (Amlodipine 2.5 Mg Tab) 2.5 mg PO [facility] Last Admin: 04/03/22 21:25 Dose: 2.5 mg Aspirin (Aspirin 81 Mg) 81 mg PO DAILY [facility] Atorvastatin Calcium (Atorvastatin 40 Mg Tab) 40 mg PO [facility] Last Admin: 04/03/22 21:25 Dose: 40 mg Atropine Sulfate (Atropine Sulfate 0.1 Mg/Ml 10ml Syringe) 0.5 mg IV ONCE PRN PRN Reason: Symptomatic Bradycardia Calcium Carbonate/Glycine (Calcium Carbonate 500 Mg Chewable) 1,000 mg PO Q4HR PRN PRN Reason: Dyspepsia Cholecalciferol (Cholecalciferol 25 Mcg (1000 Iu) Tablet) 50 mcg PO DAILY [facility] Last Admin: 04/03/22 06:04 Dose: 50 mcg Cyanocobalamin (Cyanocobalamin 500 Mcg Tab) 1,000 mcg PO [facility] Diazepam (Diazepam 2 Mg Tab) 2 mg PO Q4H PRN PRN Reason: Anxiety Diclofenac Sodium (Diclofenac Sodium Gel 100 Gm Tube) 2 gm TOPICAL QID [facility]; Protocol Last Admin: 04/03/22 21:26 Dose: 2 gm Diphenhydramine HCl (Diphenhydramine 50 Mg Cap) 50 mg PO HS PRN PRN Reason: Allergy Symptoms Last Admin: 04/03/22 03:20 Dose: 50 mg Gabapentin (Gabapentin 400 Mg Cap) 400 mg PO QID [facility] Last Admin: 04/03/22 21:26 Dose: 400 mg Glipizide (Glipizide 5 Mg Tab) 5 mg PO BID [facility] Last Admin: 04/03/22 17:39 Dose: 5 mg Lisinopril/HCTZ (Lisinopril-Hctz 20-25 Mg 1 Each Tab) 1 each PO DAILY [facility] Last Admin: 04/03/22 08:11 Dose: 1 each Heparin Sodium (Porcine) (Heparin Sodium 1,000 Un/Ml (10ml Vl)) 0 unit IV PER PROTOCOL PRN; Protocol PRN Reason: Low PTT Last Admin: 04/03/22 03:45 Dose: 4,000 unit Hydrochlorothiazide (Hydrochlorothiazide 25 Mg Tab) 25 mg PO DAILY [facility] Last Admin: 04/03/22 08:11 Dose: 25 mg Heparin Sodium/Sodium Chloride (25,000 unit/ Sodium Chloride) 250 mls @ 10 mls/hr IV .Q24H [facility]; Protocol Last Admin: 04/03/22 20:13 Dose: Not Given Diltiazem HCl 125 mg/ Sodium (Chloride) 125 mls @ 10 mls/hr IV .[id number] [facility] Last Admin: 04/03/22 20:14 Dose: Not Given Ibuprofen (Ibuprofen 800 Mg Tab) 800 mg PO TID [facility] Last Admin: 04/03/22 21:25 Dose: 800 mg Lactulose (Lactulose 20 Gm/30 Ml Cup) 20 gm PO DAILY PRN PRN Reason: Constipation Last Admin: 04/01/22 22:34 Dose: 20 gm Levothyroxine Sodium (Levothyroxine 75 Mcg Tab) 75 mcg PO DAILY@0630 [facility] Last Admin: 04/03/22 06:04 Dose: 75 mcg Magnesium Oxide (Magnesium Oxide 400 Mg Tab) 400 mg PO DAILY [facility] Last Admin: 04/03/22 06:03 Dose: 400 mg Methocarbamol (Methocarbamol 750 Mg Tab) 750 mg PO Q4H PRN PRN Reason: Muscle Spasm Miscellaneous Information (Rx Info: Iv Contrast Was Given 1 Each Misc) 1 each MISCELLANE DAILY PRN PRN Reason: Per Protocol Stop: 04/05/22 13:21 Naloxone HCl (Naloxone 0.4 Mg/Ml 1 Ml Vial) 0.2 mg IV Q2M PRN PRN Reason: Opioid Reversal Nitroglycerin (Nitroglycerin Sl Tabs 0.4 Mg Tab) 0.4 mg SUBLINGUAL Q5M PRN PRN Reason: Chest Pain Nortriptyline HCl (Nortriptyline 25 Mg Cap) 25 mg PO DAILY [facility] Last Admin: 04/03/22 08:11 Dose: 25 mg Ondansetron HCl (Ondansetron 4 Mg/2 Ml Vial) 4 mg IVP Q8HR PRN PRN Reason: Nausea And Vomiting Last Admin: 04/03/22 22:48 Dose: 4 mg Pantoprazole Sodium (Pantoprazole 40 Mg Tablet) 40 mg PO -BRKFST [facility] Last Admin: 04/03/22 06:03 Dose: 40 mg Ticagrelor (Ticagrelor 90 Mg Tab) 90 mg PO BID [facility]; Protocol Last Admin: 04/03/22 21:25 Dose: 90 mg Zolpidem Tartrate (Zolpidem 5 Mg Tab) 5 mg PO HS PRN PRN Reason: Insomnia Last Admin: 04/03/22 21:25 Dose: 5 mg Social history: . Does not smoke or drink alcohol. Physical examination: VITAL SIGNS: 97.5, 77, 17, 1:15 bradycardia, 97% on 2 L GENERAL: Comfortable. EYES: Pupils equal. Conjunctiva normal. HEENT: External appearance of nose and ears normal, oral cavity grossly normal. NECK: JVD not raised; masses not palpable. HEART: First and second heart sounds are normal; no edema. LUNGS: Respiratory rate normal; clear to auscultation. ABDOMEN: Soft, nontender, liver spleen not palpable, no masses palpable. PSYCH: Alert and oriented x3; mood and affect normal. MUSCULOSKELETAL:No Clubbing/cyanosis;muscles-grossly intact. OA INVESTIGATIONS, reviewed in the clinical context: April 03: Hemoglobin 12 White count 13.8 hemoglobin 11.3 platelets 317 sodium 129 potassium 3.7 creatinine 0.8 Troponin I less than 0.012, 0.024 EKG tracing personally reviewed by me-atrial fibrillation. Rate 84 Chest x-ray film-personally reviewed by me-cardiomegaly. Questionable venous prominence versus infiltrate 2-D echocardiogram: EF 55%. Assessment plan: -Anterior chest wall pain. unstable angina. CAD. Positive nuclear stress test. -CAD with prior stent Cardiac catheterization today with stent to LAD by Dr. Nunez -Diabetes mellitus type 2, on oral hypoglycemic Follow Accu-Cheks -GERD PPI -Essential hypertension Amlodipine 2.5 mg daily at bedtime Zestoretic -Primary osteoarthritis Pain medications as needed -Obstructive sleep apnea uses CPAP -IV heparin monitoring Follow PTT -Hypothyroid Synthroid 75 g -Diabetic peripheral neuropathy Neurontin 400 mg 4 times a day Continue current medications. Follow with cardiology. Aspirin and Brillinta.
[2022-04-04] MEDS ORDERED: IV FLUID CONTINUATION 500 ML IV ONE (00:10)
[2022-04-04] MEDS: PANTOPRAZOLE 40 MG TABLET PO SCH (05:24)
[2022-04-04] MEDS: LEVOTHYROXINE 75 MCG TAB PO SCH (05:24)
[2022-04-04 06:10] LABS: Basophils % (A) 0 %; Eosinophils # (A) 0.1 k/uL (0-0.7); Eosinophils % (A) 1 %; HCT 38.7 % (34.0-46.0); HGB 13.3 gm/dL (11.4-16.0); Lymphocytes % (A) 17 %; MCH 29.8 pg (25.0-35.0); MCHC 34.2 g/dL (31.0-37.0); MCV 87.2 fL (80.0-100.0); Mean Platelet Volume 7.3; Monocytes # (A) 0.8 k/uL (0-1.0); Monocytes % (A) 7 %; Neutrophils # (A) 8.3 k/uL (1.3-7.7); Neutrophils % (A) 71 %; Platelet Count 340 k/uL (150-450); RBC 4.44 m/uL (3.80-5.40); RDW 13.6 % (11.5-15.5); WBC 11.8 k/uL (3.8-10.6)
[2022-04-04 06:19] LABS: African American GFR (CKD) >90 (>60 ml/min/1.73 sqM); Anion Gap 6 mmol/L; Blood Urea Nitrogen 13 mg/dL (7-17); Calcium 8.5 mg/dL (8.4-10.2); Carbon Dioxide 31 mmol/L (22-30); Chloride 89 mmol/L (98-107); Glucose 201 mg/dL (74-99); Non-African American GFR(CKD) 87 (>60 ml/min/1.73 sqM); Sodium 126 mmol/L (137-145)
[2022-04-04 06:30] LABS: Potassium 3.5 mmol/L (3.5-5.1)
[2022-04-04 07:36] LABS: Glucose,Whole Blood 209 mg/dL (70-110)
[2022-04-04] MEDS ORDERED: AMIODARONE 360 MG in DEXTROSE 5% IN WATER 200 ML IV ONE ×2 (07:44)
[2022-04-04] MEDS ORDERED: AMIODARONE 450 MG in DEXTROSE 5% IN WATER 250 ML IV SCH ×2 (07:45)
[2022-04-04 07:57] VITALS: RESP 18
[2022-04-04] MEDS: HEPARIN SOD,PORK IN 0.45% NACL 25,000 UNIT in 0.45% NACL 1 250ML.BAG IV SCH (08:09)
[2022-04-04] MEDS: METOPROLOL SUCCINATE (ER) 50 MG TAB.ER.24H PO SCH (08:11)
--- NOTE | 2022-04-04 08:39 | PN ---
PROGRESS NOTE HISTORY OF PRESENT ILLNESS: Leti is an 82-year-old lady who is admitted to hospital with chest pain, ruled out for myocardial infarction, underwent a stress test that showed ischemia, went on to have cardiac catheterization that revealed severe stenosis involving left anterior descending coronary artery for which she underwent angioplasty with stent placement. The patient developed atrial fibrillation with rapid ventricular rate prior to angioplasty but converted back to sinus rhythm, but this morning she flipped back into atrial fibrillation with rapid ventricular rate. An echocardiogram on this admission revealed normal LV systolic function with mild mitral regurgitation. PHYSICAL EXAMINATION: VITAL SIGNS: On exam, blood pressure is elevated, heart rate is in the 140s per minute, and respiratory rate is 18. CHEST: Good air entry bilaterally. HEART: Reveals first and second heart sounds. No gallop, no murmur. ABDOMEN: Soft. EXTREMITIES: Did not reveal any edema. Peripheral pulses are felt. ASSESSMENT: Persistent atrial fibrillation with rapid ventricular rate, coronary artery disease, status post angioplasty of the left anterior descending artery. PLAN: I am going to start the patient on Toprol-XL 50 mg daily, started on amiodarone drip and resume the IV heparin. Once she converts and if she is covered for Eliquis, we will switch her to Eliquis and discharge her home on aspirin, Brilinta, and Eliquis for a week and after that the aspirin will be dropped. MMODL / IJN: [id number] /
[2022-04-04] MEDS: TICAGRELOR 90 MG TAB PO SCH ×2 (08:41→21:19)
[2022-04-04] MEDS: glipiZIDE 5 MG TAB PO SCH ×2 (08:41→21:20)
[2022-04-04] MEDS: CHOLECALCIFEROL 25 MCG (1000 IU) TABLET PO SCH (08:41)
[2022-04-04] MEDS: ASPIRIN 81 MG PO SCH (08:41)
[2022-04-04] MEDS: LISINOPRIL-HCTZ 20-25 MG 1 EACH TAB PO SCH (08:41)
[2022-04-04] MEDS: MAGNESIUM OXIDE 400 MG TAB PO SCH (08:41)
[2022-04-04] MEDS: GABAPENTIN 400 MG CAP PO SCH ×4 (08:42→21:19)
[2022-04-04] MEDS: IBUPROFEN 800 MG TAB PO SCH ×3 (08:42→21:21)
[2022-04-04] MEDS: NORTRIPTYLINE 25 MG CAP PO SCH (08:42)
[2022-04-04] MEDS: hydroCHLOROthiazide 25 MG TAB PO SCH (08:42)
[2022-04-04] MEDS: AMIODARONE 200 MG TAB PO SCH ×2 (08:43→21:20)
[2022-04-04] MEDS: DILTIAZEM 125 MG in SODIUM CHLORIDE 0.9% 100 ML IV SCH (08:43)
[2022-04-04] MEDS: DICLOFENAC SODIUM GEL 100 GM TUBE TOPICAL SCH ×4 (08:44→21:21)
[2022-04-04] MEDS ORDERED: DILTIAZEM 125 MG in SODIUM CHLORIDE 0.9% 100 ML IV SCH (10:15)
[2022-04-04 11:18] LABS: Glucose,Whole Blood 348 mg/dL (70-110)
[2022-04-04] MEDS: INSULIN ASPART (NovoLOG) 100 UNIT/ML VIAL SQ SCH ×3 (12:43→21:20)
[2022-04-04] MEDS: CALCIUM CARBONATE LIQUID 500 MG/5 ML CUP PO SCH ×2 (12:44→18:19)
[2022-04-04] MEDS: HEPARIN SODIUM 1,000 UN/ML (10ML VL) IV PRN (16:08)
[2022-04-04 18:13] LABS: Glucose,Whole Blood 268 mg/dL (70-110)
--- NOTE | 2022-04-04 20:51 | P.PN ---
Progress Note - Text Progress Note Date: 04/04/22 Chief Complaint: Chest pain This is a pleasant 82-year-old patient who follows with Dr. Mueller. Chronic stable medical conditions include CAD with stent several years ago, diabetes, GERD, hypertension, osteoarthritis, obstructive sleep apnea, hypothyroid, peripheral neuropathy, obstructive sleep apnea with CPAP, Patient is accompanied by her in the ER. Patient developed left precordial pain. Some worsening with breathing. Started 10:00 yesterday morning. It's radiate to the neck. Some shortness of breath. No perspiration. No fever no chills. No cough. April 03: Patient has a positive nuclear stress test. Underwent cardiac catheterization today. Stent to LAD. Postprocedure patient stable. No neck symptoms. April 04: Since yesterday patient is been in and out of atrial fibrillation. On Cardizem drip. Had a rapid rate this morning. Went back in sinus rhythm and back into A. fib. IV heparin. Oral Cordarone was added by: Cardiology. Also Toprol-XL 50 mg was ordered. Patient not feeling well. Tired. Active Medications Acetaminophen (Acetaminophen Tab 325 Mg Tab) 650 mg PO Q6HR PRN PRN Reason: Mild Pain or Fever > 100.5 Al Hydroxide/Mg Hydroxide (Mag Hydrox/Al Hydrox/Simeth 30 Ml Cup) 30 ml PO Q4HR PRN PRN Reason: Heartburn Alprazolam (Alprazolam 0.25 Mg Tab) 0.25 mg PO Q6HR PRN PRN Reason: Mild Anxiety Alprazolam (Alprazolam 0.5 Mg Tab) 0.5 mg PO Q6HR PRN PRN Reason: Moderate Anxiety Amiodarone HCl (Amiodarone 200 Mg Tab) 400 mg PO BID [facility] Last Admin: 04/04/22 08:43 Dose: 400 mg Aspirin (Aspirin 81 Mg) 81 mg PO DAILY [facility] Last Admin: 04/04/22 08:41 Dose: 81 mg Atorvastatin Calcium (Atorvastatin 40 Mg Tab) 40 mg PO HS [facility] Last Admin: 04/03/22 21:25 Dose: 40 mg Atropine Sulfate (Atropine Sulfate 0.1 Mg/Ml 10ml Syringe) 0.5 mg IV ONCE PRN PRN Reason: Symptomatic Bradycardia Calcium Carbonate/Glycine (Calcium Carbonate 500 Mg Chewable) 1,000 mg PO Q4HR PRN PRN Reason: Dyspepsia Calcium Carbonate/Glycine (Calcium Carbonate Liquid 500 Mg/5 Ml Cup) 500 mg PO TID-W/MEALS [facility] Last Admin: 04/04/22 18:19 Dose: 500 mg Cholecalciferol (Cholecalciferol 25 Mcg (1000 Iu) Tablet) 50 mcg PO DAILY [facility] Last Admin: 04/04/22 08:41 Dose: 50 mcg Cyanocobalamin (Cyanocobalamin 500 Mcg Tab) 1,000 mcg PO [facility] Diazepam (Diazepam 2 Mg Tab) 2 mg PO Q4H PRN PRN Reason: Anxiety Diclofenac Sodium (Diclofenac Sodium Gel 100 Gm Tube) 2 gm TOPICAL QID [facility]; Protocol Last Admin: 04/04/22 18:21 Dose: 2 gm Diphenhydramine HCl (Diphenhydramine 50 Mg Cap) 50 mg PO HS PRN PRN Reason: Allergy Symptoms Last Admin: 04/03/22 03:20 Dose: 50 mg Gabapentin (Gabapentin 400 Mg Cap) 400 mg PO QID [facility] Last Admin: 04/04/22 18:19 Dose: 400 mg Glipizide (Glipizide 5 Mg Tab) 5 mg PO BID [facility] Last Admin: 04/04/22 08:41 Dose: 5 mg Lisinopril/HCTZ (Lisinopril-Hctz 20-25 Mg 1 Each Tab) 1 each PO DAILY [facility] Last Admin: 04/04/22 08:41 Dose: 1 each Heparin Sodium (Porcine) (Heparin Sodium 1,000 Un/Ml (10ml Vl)) 0 unit IV PER PROTOCOL PRN; Protocol PRN Reason: Low PTT Last Admin: 04/04/22 16:08 Dose: 4,000 unit Hydrochlorothiazide (Hydrochlorothiazide 25 Mg Tab) 25 mg PO DAILY [facility] Last Admin: 04/04/22 08:42 Dose: 25 mg Heparin Sodium/Sodium Chloride (25,000 unit/ Sodium Chloride) 250 mls @ 9.997 mls/hr IV .Q24H [facility]; Protocol Last Titration: 04/04/22 16:05 Dose: 14.6 units/kg/hr, 12.583 mls/hr Ibuprofen (Ibuprofen 800 Mg Tab) 800 mg PO TID [facility] Last Admin: 04/04/22 18:10 Dose: Not Given Insulin Aspart (Insulin Aspart (Novolog) 100 Unit/Ml Vial) 0 unit SQ ACHS [facility]; Protocol Last Admin: 04/04/22 18:19 Dose: 6 unit Lactulose (Lactulose 20 Gm/30 Ml Cup) 20 gm PO DAILY PRN PRN Reason: Constipation Last Admin: 04/01/22 22:34 Dose: 20 gm Levothyroxine Sodium (Levothyroxine 75 Mcg Tab) 75 mcg PO DAILY@0630 [facility] Last Admin: 04/04/22 05:24 Dose: 75 mcg Magnesium Oxide (Magnesium Oxide 400 Mg Tab) 400 mg PO DAILY [facility] Last Admin: 04/04/22 08:41 Dose: 400 mg Methocarbamol (Methocarbamol 750 Mg Tab) 750 mg PO Q4H PRN PRN Reason: Muscle Spasm Metoprolol Succinate (Metoprolol Succinate (Er) 50 Mg Tab.Er.24h) 50 mg PO DAILY [facility] Last Admin: 04/04/22 08:11 Dose: 50 mg Miscellaneous Information (Rx Info: Iv Contrast Was Given 1 Each Misc) 1 each MISCELLANE DAILY PRN PRN Reason: Per Protocol Stop: 04/05/22 13:21 Naloxone HCl (Naloxone 0.4 Mg/Ml 1 Ml Vial) 0.2 mg IV Q2M PRN PRN Reason: Opioid Reversal Nitroglycerin (Nitroglycerin Sl Tabs 0.4 Mg Tab) 0.4 mg SUBLINGUAL Q5M PRN PRN Reason: Chest Pain Nortriptyline HCl (Nortriptyline 25 Mg Cap) 25 mg PO DAILY [facility] Last Admin: 04/04/22 08:42 Dose: 25 mg Ondansetron HCl (Ondansetron 4 Mg/2 Ml Vial) 4 mg IVP Q8HR PRN PRN Reason: Nausea And Vomiting Last Admin: 04/03/22 22:48 Dose: 4 mg Pantoprazole Sodium (Pantoprazole 40 Mg Tablet) 40 mg PO AC-BRKFST [facility] Last Admin: 04/04/22 05:24 Dose: 40 mg Ticagrelor (Ticagrelor 90 Mg Tab) 90 mg PO BID [facility]; Protocol Last Admin: 04/04/22 08:41 Dose: 90 mg Zolpidem Tartrate (Zolpidem 5 Mg Tab) 5 mg PO HS PRN PRN Reason: Insomnia Last Admin: 04/03/22 21:25 Dose: 5 mg Social history: . Does not smoke or drink alcohol. Physical examination: VITAL SIGNS: 97, 140, 20, 125/91, 98% on 2 L GENERAL: Laying in bed, uncomfortable EYES: Pupils equal. Conjunctiva normal. HEENT: External appearance of nose and ears normal, oral cavity grossly normal. NECK: JVD not raised; masses not palpable. HEART: Heart sounds irregular; no edema. LUNGS: Respiratory rate increased clear to auscultation. ABDOMEN: Soft, nontender, liver spleen not palpable, no masses palpable. PSYCH: Alert and oriented x3; mood and affect anxious. MUSCULOSKELETAL:No Clubbing/cyanosis;muscles-grossly intact. OA INVESTIGATIONS, reviewed in the clinical context: April 04: Hemoglobin 13.3 sodium 126 progression 3.5 creatinine 0.55 April 03: Hemoglobin 12 White count 13.8 hemoglobin 11.3 platelets 317 sodium 129 potassium 3.7 creatinine 0.8 Troponin I less than 0.012, 0.024 EKG tracing personally reviewed by me-atrial fibrillation. Rate 84 Chest x-ray film-personally reviewed by me-cardiomegaly. Questionable venous prominence versus infiltrate 2-D echocardiogram: EF 55%. Assessment plan: -Anterior chest wall pain. unstable angina. CAD. Positive nuclear stress test. -CAD with prior stent Cardiac catheterization April 03 with stent to LAD by Dr. Nunez -Paroxysmal recurrent atrial fibrillation with rapid ventricular rate: Uncontrolled Patient put on IV heparin, IV Cardizem drip. Later swished on oral amiodarone and Toprol-XL 50 mg. -Diabetes mellitus type 2, on oral hypoglycemic Follow Accu-Cheks -GERD PPI -Essential hypertension Amlodipine 2.5 mg daily at bedtime Zestoretic -Primary osteoarthritis Pain medications as needed -Obstructive sleep apnea uses CPAP -IV heparin monitoring Follow PTT -Hypothyroid Synthroid 75 g -Diabetic peripheral neuropathy Neurontin 400 mg 4 times a day -Hyponatremia. Encourage oral intake IV heparin. IV Cardizem drip. Oral Cordarone and Toprol XL started today. Discussed with patient.
[2022-04-04 21:01] LABS: Glucose,Whole Blood 260 mg/dL (70-110)
[2022-04-04] MEDS: ATORVASTATIN 40 MG TAB PO SCH (21:20)
[2022-04-04] MEDS: NITROGLYCERIN SL TABS 0.4 MG TAB SUBLINGUAL PRN ×2 (22:28→22:48)
[2022-04-04] MEDS ORDERED: NITROGLYCERIN OINT 1 INCH/GM PACKET TOPICAL STA (22:54)
[2022-04-04] MEDS ORDERED: HYDROmorphone 0.5 MG/0.5 ML SYRINGE IVP STA (22:54)
[2022-04-05] MEDS ORDERED: VERAPAMIL 2.5 MG/ML 2 ML AMP ONE (00:10)
[2022-04-05] MEDS ORDERED: LIDOCAINE 1% INJ 10MG/ML (30 ML VIAL-PF) SQ ONE (00:13)
[2022-04-05] MEDS ORDERED: HEPARIN SODIUM 1,000 UN/ML (10ML VL) ONE (00:13)
[2022-04-05] MEDS ORDERED: VERAPAMIL SYRINGE (5 MG/10 ML) INTRAARTER ONE (00:15)
[2022-04-05] MEDS ORDERED: HEPARIN SODIUM 1,000 UN/ML (10ML VL) IV ONE (00:39)
[2022-04-05] MEDS ORDERED: MIDAZOLAM 2 MG/2 ML VIAL IV ONE (00:46)
[2022-04-05] MEDS ORDERED: IOPAMIDOL-370 125ML BTL INJ ONE (00:49)
[2022-04-05] MEDS ORDERED: RX INFO: IV CONTRAST WAS GIVEN 1 EACH MISC MISCELLANE PRN (00:50)
[2022-04-05] MEDS: SODIUM CHLORIDE 0.9% 1,000 ML IV SCH ×2 (01:46→15:58)
--- NOTE | 2022-04-05 02:41 | P.EN ---
A team called on this patient due to chest pain not improving with nitro 82 year old female with CAD , presented to the hospital for chest pain , and was taken to microbiology lab technician and required 3 stents deployed into the LAD. she continues to be on cardizem drip due to afib in microbiology lab technician, and on heparin drip. today at 2230 started having chest pain , not improving with nitro A team was activated , I was called to the A team at 2244 upon reviewing the case and examining the patient , the EKG showed ST elevation over V3 V4 which is new compared to EKG from this morning. I activated the builder's labourer, however upon cardiology review of the EKG , Dr Newell canceled microbiology lab technician and requested to continue with heparin drip , try nitro paste, and dilauded. supplemental oxygen patient was reevaluated again around 2314 , despite above mentioned measures, she continues to be in severe chest pain diaphoretic , and short of breath, vital signs stable , repeat EKG still showing ST elevation over leads V3 V4. cardiology was contacted again , reviewed the EKG and decided to activate microbiology lab technician this time. patient was taken to the microbiology lab technician at 3 RN notified family 40 minutes were spent in delivering critical care service not counting time spent doing procedures.
[2022-04-05 06:29] LABS: Glucose,Whole Blood 241 mg/dL (70-110)
[2022-04-05] MEDS: LEVOTHYROXINE 75 MCG TAB PO SCH (06:38)
[2022-04-05] MEDS: PANTOPRAZOLE 40 MG TABLET PO SCH (06:38)
[2022-04-05] MEDS: INSULIN ASPART (NovoLOG) 100 UNIT/ML VIAL SQ SCH ×4 (06:38→21:12)
[2022-04-05] MEDS: CALCIUM CARBONATE LIQUID 500 MG/5 ML CUP PO SCH ×3 (06:38→17:31)
[2022-04-05] MEDS: CHOLECALCIFEROL 25 MCG (1000 IU) TABLET PO SCH (08:35)
[2022-04-05] MEDS: METOPROLOL SUCCINATE (ER) 50 MG TAB.ER.24H PO SCH (08:35)
[2022-04-05] MEDS: IBUPROFEN 800 MG TAB PO SCH ×3 (08:35→20:56)
[2022-04-05] MEDS: MAGNESIUM OXIDE 400 MG TAB PO SCH (08:35)
[2022-04-05] MEDS: ASPIRIN 81 MG PO SCH (08:36)
[2022-04-05] MEDS: APIXABAN 5 MG TAB PO SCH ×2 (08:36→20:57)
[2022-04-05] MEDS: GABAPENTIN 400 MG CAP PO SCH ×4 (08:36→20:57)
[2022-04-05] MEDS: AMIODARONE 200 MG TAB PO SCH ×2 (08:36→20:57)
[2022-04-05] MEDS: LISINOPRIL-HCTZ 20-25 MG 1 EACH TAB PO SCH (08:37)
[2022-04-05] MEDS: hydroCHLOROthiazide 25 MG TAB PO SCH (08:37)
[2022-04-05] MEDS: NORTRIPTYLINE 25 MG CAP PO SCH (08:37)
[2022-04-05] MEDS: DICLOFENAC SODIUM GEL 100 GM TUBE TOPICAL SCH ×4 (08:49→20:58)
[2022-04-05] MEDS: glipiZIDE 5 MG TAB PO SCH ×2 (08:49→20:57)
[2022-04-05] MEDS: TICAGRELOR 90 MG TAB PO SCH ×2 (11:33→20:57)
[2022-04-05] MEDS: HEPARIN SOD,PORK IN 0.45% NACL 25,000 UNIT in 0.45% NACL 1 250ML.BAG IV SCH (12:02)
[2022-04-05 13:19] LABS: Glucose,Whole Blood 279 mg/dL (70-110)
--- NOTE | 2022-04-05 14:12 | PN ---
PROGRESS NOTE SUBJECTIVE: Leti is an 82-year-old lady, who was admitted to hospital with unstable angina, underwent stress test that showed ischemia in the LAD distribution, went on to have a complex angioplasty of the LAD. Last night, developed chest discomfort and bilateral arm pain and had some EKG changes in the precordial leads due to which she underwent emergent cardiac catheterization that revealed a patent stent in the LAD. The troponin that was done came back elevated, probably related to the recent angioplasty. We advised medical therapy, has had history of paroxysmal atrial fibrillation on this admission. This morning, she is feeling better. She is on amiodarone for rhythm suppression, Eliquis, aspirin, Lipitor, and Toprol-XL along with Brilinta. We are going to drop the aspirin over the next few weeks. OBJECTIVE: GENERAL: On exam today, she appears comfortable at rest. VITAL SIGNS: Stable. NECK: There is no jugular venous distention. CHEST: Reveals good air entry bilaterally. HEART: Reveals first and second heart sounds. Systolic murmur at the apex. ABDOMEN: Soft. EXTREMITIES: Did not reveal any edema. Peripheral pulses are felt. ASSESSMENT: 1. Precordial chest pain, status post catheterization and advised medical therapy. 2. Paroxysmal atrial fibrillation. 3. Coronary artery disease, status post angioplasty of the LAD. PLAN: We will watch her in the hospital for another day. Hopefully home tomorrow, and follow up with Dr. Nunez. SHAWN / MIRANDA: [id number] /
[2022-04-05 17:23] LABS: Glucose,Whole Blood 312 mg/dL (70-110)
--- NOTE | 2022-04-05 17:36 | P.PN ---
Progress Note - Text Progress Note Date: 04/05/22 Chief Complaint: Chest pain This is a pleasant 82-year-old patient who follows with Dr. Mueller. Chronic stable medical conditions include CAD with stent several years ago, diabetes, GERD, hypertension, osteoarthritis, obstructive sleep apnea, hypothyroid, peripheral neuropathy, obstructive sleep apnea with CPAP, Patient is accompanied by her in the ER. Patient developed left precordial pain. Some worsening with breathing. Started 10:00 yesterday morning. It's radiate to the neck. Some shortness of breath. No perspiration. No fever no chills. No cough. April 03: Patient has a positive nuclear stress test. Underwent cardiac catheterization today. Stent to LAD. Postprocedure patient stable. No neck symptoms. April 04: Since yesterday patient is been in and out of atrial fibrillation. On Cardizem drip. Had a rapid rate this morning. Went back in sinus rhythm and back into A. fib. IV heparin. Oral Cordarone was added by: Cardiology. Also Toprol-XL 50 mg was ordered. Patient not feeling well. Tired. April 05: Overnight patient had further chest pain. Had ST elevation UT. Patient underwent emergent cardiac catheterization revealed a patent stent in the LAD. Troponin came back elevated. Possibly from his recent UT. Patient does feel tired this morning. Heart rate better controlled. Breathing stable. No chest pain. Active Medications Acetaminophen (Acetaminophen Tab 325 Mg Tab) 650 mg PO Q6HR PRN PRN Reason: Mild Pain or Fever > 100.5 Al Hydroxide/Mg Hydroxide (Mag Hydrox/Al Hydrox/Simeth 30 Ml Cup) 30 ml PO Q4HR PRN PRN Reason: Heartburn Alprazolam (Alprazolam 0.25 Mg Tab) 0.25 mg PO Q6HR PRN PRN Reason: Mild Anxiety Alprazolam (Alprazolam 0.5 Mg Tab) 0.5 mg PO Q6HR PRN PRN Reason: Moderate Anxiety Amiodarone HCl (Amiodarone 200 Mg Tab) 400 mg PO BID [facility] Last Admin: 04/05/22 08:36 Dose: 400 mg Apixaban (Apixaban 5 Mg Tab) 5 mg PO BID [facility]; Protocol Last Admin: 04/05/22 08:36 Dose: 5 mg Aspirin (Aspirin 81 Mg) 81 mg PO DAILY [facility] Last Admin: 04/05/22 08:36 Dose: 81 mg Atorvastatin Calcium (Atorvastatin 40 Mg Tab) 40 mg PO HS [facility] Last Admin: 04/04/22 21:20 Dose: 40 mg Atropine Sulfate (Atropine Sulfate 0.1 Mg/Ml 10ml Syringe) 0.5 mg IV ONCE PRN PRN Reason: Symptomatic Bradycardia Calcium Carbonate/Glycine (Calcium Carbonate 500 Mg Chewable) 1,000 mg PO Q4HR PRN PRN Reason: Dyspepsia Last Admin: 04/05/22 13:52 Dose: 1,000 mg Calcium Carbonate/Glycine (Calcium Carbonate Liquid 500 Mg/5 Ml Cup) 500 mg PO TID-W/MEALS [facility] Last Admin: 04/05/22 17:31 Dose: 500 mg Cholecalciferol (Cholecalciferol 25 Mcg (1000 Iu) Tablet) 50 mcg PO DAILY [facility] Last Admin: 04/05/22 08:35 Dose: 50 mcg Cyanocobalamin (Cyanocobalamin 500 Mcg Tab) 1,000 mcg PO FUNES [facility] Diazepam (Diazepam 2 Mg Tab) 2 mg PO Q4H PRN PRN Reason: Anxiety Diclofenac Sodium (Diclofenac Sodium Gel 100 Gm Tube) 2 gm TOPICAL QID [facility]; Protocol Last Admin: 04/05/22 13:53 Dose: 2 gm Diphenhydramine HCl (Diphenhydramine 50 Mg Cap) 50 mg PO HS PRN PRN Reason: Allergy Symptoms Last Admin: 04/03/22 03:20 Dose: 50 mg Gabapentin (Gabapentin 400 Mg Cap) 400 mg PO QID [facility] Last Admin: 04/05/22 13:52 Dose: 400 mg Glipizide (Glipizide 5 Mg Tab) 5 mg PO BID [facility] Last Admin: 04/05/22 08:49 Dose: 5 mg Lisinopril/HCTZ (Lisinopril-Hctz 20-25 Mg 1 Each Tab) 1 each PO DAILY [facility] Last Admin: 04/05/22 08:37 Dose: 1 each Hydrochlorothiazide (Hydrochlorothiazide 25 Mg Tab) 25 mg PO DAILY [facility] Last Admin: 04/05/22 08:37 Dose: 25 mg Sodium Chloride (Saline 0.9%) 1,000 mls @ 75 mls/hr IV .[id number] [facility] Last Admin: 04/05/22 15:58 Dose: Not Given Ibuprofen (Ibuprofen 800 Mg Tab) 800 mg PO TID [facility] Last Admin: 04/05/22 17:31 Dose: 800 mg Insulin Aspart (Insulin Aspart (Novolog) 100 Unit/Ml Vial) 0 unit SQ ACHS [facility]; Protocol Last Admin: 04/05/22 17:31 Dose: 8 unit Lactulose (Lactulose 20 Gm/30 Ml Cup) 20 gm PO DAILY PRN PRN Reason: Constipation Last Admin: 04/01/22 22:34 Dose: 20 gm Levothyroxine Sodium (Levothyroxine 75 Mcg Tab) 75 mcg PO DAILY@0630 [facility] Last Admin: 04/05/22 06:38 Dose: 75 mcg Magnesium Oxide (Magnesium Oxide 400 Mg Tab) 400 mg PO DAILY [facility] Last Admin: 04/05/22 08:35 Dose: 400 mg Methocarbamol (Methocarbamol 750 Mg Tab) 750 mg PO Q4H PRN PRN Reason: Muscle Spasm Last Admin: 04/05/22 03:36 Dose: 750 mg Metoprolol Succinate (Metoprolol Succinate (Er) 50 Mg Tab.Er.24h) 50 mg PO DAILY [facility] Last Admin: 04/05/22 08:35 Dose: 50 mg Miscellaneous Information (Rx Info: Iv Contrast Was Given 1 Each Misc) 1 each MISCELLANE DAILY PRN PRN Reason: Per Protocol Stop: 04/07/22 00:50 Naloxone HCl (Naloxone 0.4 Mg/Ml 1 Ml Vial) 0.2 mg IV Q2M PRN PRN Reason: Opioid Reversal Nitroglycerin (Nitroglycerin Sl Tabs 0.4 Mg Tab) 0.4 mg SUBLINGUAL Q5M PRN PRN Reason: Chest Pain Last Admin: 04/04/22 22:48 Dose: 0.4 mg Nortriptyline HCl (Nortriptyline 25 Mg Cap) 25 mg PO DAILY [facility] Last Admin: 04/05/22 08:37 Dose: 25 mg Ondansetron HCl (Ondansetron 4 Mg/2 Ml Vial) 4 mg IVP Q8HR PRN PRN Reason: Nausea And Vomiting Last Admin: 04/03/22 22:48 Dose: 4 mg Pantoprazole Sodium (Pantoprazole 40 Mg Tablet) 40 mg PO -BRKFST [facility] Last Admin: 04/05/22 06:38 Dose: 40 mg Ticagrelor (Ticagrelor 90 Mg Tab) 90 mg PO BID [facility]; Protocol Last Admin: 04/05/22 11:33 Dose: 90 mg Zolpidem Tartrate (Zolpidem 5 Mg Tab) 5 mg PO HS PRN PRN Reason: Insomnia Last Admin: 04/03/22 21:25 Dose: 5 mg Social history: . Does not smoke or drink alcohol. Physical examination: VITAL SIGNS: 98.1, 76, 18, 140/83, 95% on 2 L GENERAL: Laying in bed, anxious EYES: Pupils equal. Conjunctiva normal. HEENT: External appearance of nose and ears normal, oral cavity grossly normal. NECK: JVD not raised; masses not palpable. HEART: Heart sounds irregular; no edema. LUNGS: Respiratory rate increased clear to auscultation. ABDOMEN: Soft, nontender, liver spleen not palpable, no masses palpable. PSYCH: Alert and oriented x3; mood and affect anxious. MUSCULOSKELETAL:No Clubbing/cyanosis;muscles-grossly intact. OA INVESTIGATIONS, reviewed in the clinical context: April 05: Troponin I 7.3 April 04: Hemoglobin 13.3 sodium 126 progression 3.5 creatinine 0.55 April 03: Hemoglobin 12 White count 13.8 hemoglobin 11.3 platelets 317 sodium 129 potassium 3.7 creatinine 0.8 Troponin I less than 0.012, 0.024 EKG tracing personally reviewed by me-atrial fibrillation. Rate 84 Chest x-ray film-personally reviewed by me-cardiomegaly. Questionable venous prominence versus infiltrate 2-D echocardiogram: EF 55%. Assessment plan: -Acute ST elevation myocardial infarction,( post stent to LAD) Repeat cardiac catheterization showed a patent stent to LAD -Unstable angina on presentation -CAD with prior stent Cardiac catheterization April 03 with stent to LAD by Dr. Nunez -Paroxysmal recurrent atrial fibrillation with rapid ventricular rate: Uncontrolled Eliquis. oral amiodarone and Toprol-XL 50 mg. -Diabetes mellitus type 2, on oral hypoglycemic Follow Accu-Cheks -GERD PPI -Essential hypertension Amlodipine 2.5 mg daily at bedtime Zestoretic . Toprol-XL -Primary osteoarthritis Pain medications as needed -Obstructive sleep apnea uses CPAP -IV heparin monitoring Follow PTT -Hypothyroid Synthroid 75 g -Diabetic peripheral neuropathy Neurontin 400 mg 4 times a day -Hyponatremia. Encourage oral intake Patient status post repeat cardiac cath overnight. LAD stent was found to be patent. Continue with beta willam admitted on eliquis. Patient reassured. Follow with cardiology.
[2022-04-05] MEDS: ZOLPIDEM 5 MG TAB PO PRN (20:57)
[2022-04-05] MEDS: ATORVASTATIN 40 MG TAB PO SCH (20:57)
[2022-04-05 21:10] LABS: Glucose,Whole Blood 242 mg/dL (70-110)
[2022-04-06] MEDS: SODIUM CHLORIDE 0.9% 1,000 ML IV SCH (04:01)
[2022-04-06] MEDS: LEVOTHYROXINE 75 MCG TAB PO SCH (05:38)
[2022-04-06] MEDS: CALCIUM CARBONATE LIQUID 500 MG/5 ML CUP PO SCH ×2 (05:38→13:08)
[2022-04-06] MEDS: PANTOPRAZOLE 40 MG TABLET PO SCH (05:38)
[2022-04-06 06:35] LABS: Glucose,Whole Blood 305 mg/dL (70-110)
[2022-04-06] MEDS: INSULIN ASPART (NovoLOG) 100 UNIT/ML VIAL SQ SCH ×2 (06:38→13:05)
[2022-04-06 08:45] VITALS: BP 107/66; PULSE 54; TEMP 97.7
[2022-04-06] MEDS: GABAPENTIN 400 MG CAP PO SCH ×2 (09:22→13:05)
[2022-04-06] MEDS: CHOLECALCIFEROL 25 MCG (1000 IU) TABLET PO SCH (09:22)
[2022-04-06] MEDS: METOPROLOL SUCCINATE (ER) 50 MG TAB.ER.24H PO SCH (09:22)
[2022-04-06] MEDS: MAGNESIUM OXIDE 400 MG TAB PO SCH (09:22)
[2022-04-06] MEDS: APIXABAN 5 MG TAB PO SCH (09:22)
[2022-04-06] MEDS: hydroCHLOROthiazide 25 MG TAB PO SCH (09:23)
[2022-04-06] MEDS: TICAGRELOR 90 MG TAB PO SCH (09:23)
[2022-04-06] MEDS: ASPIRIN 81 MG PO SCH (09:23)
[2022-04-06] MEDS: glipiZIDE 5 MG TAB PO SCH (09:23)
[2022-04-06] MEDS: LISINOPRIL-HCTZ 20-25 MG 1 EACH TAB PO SCH (09:23)
[2022-04-06] MEDS: AMIODARONE 200 MG TAB PO SCH (09:23)
[2022-04-06] MEDS: NORTRIPTYLINE 25 MG CAP PO SCH (09:24)
[2022-04-06] MEDS: IBUPROFEN 800 MG TAB PO SCH (09:24)
[2022-04-06] MEDS: DICLOFENAC SODIUM GEL 100 GM TUBE TOPICAL SCH ×2 (09:25→13:05)
[2022-04-06] MEDS ORDERED: INSULIN DETEMIR (LEVEMIR) 100 UNIT/ML SYR SQ SCH (11:00)
[2022-04-06 12:07] LABS: Glucose,Whole Blood 256 mg/dL (70-110)
--- NOTE | 2022-04-06 13:10 | DS ---
DISCHARGE SUMMARY FINAL DIAGNOSES: 1. Coronary artery disease with acute ST-elevation myocardial infarction. 2. Paroxysmal atrial fibrillation. 3. Diabetes mellitus, type 2. 4. Hypertension. 5. Atrial fibrillation with fast ventricular rate. 6. Multiple medical issues. DISCHARGE DISPOSITION: The patient will be discharged in stable condition and guarded prognosis. HISTORY OF PRESENT ILLNESS: This 82-year-old woman with a past medical history of multiple medical problems including chest pain. The patient had cardiac catheterization and stent to LAD. The patient also had an episode of atrial fibrillation also. The patient also had multiple other medical issues, as listed above, and the patient is seen by Cardiology. Cardiology cleared the patient and the patient was discharged in stable condition and guarded prognosis. PHYSICAL EXAMINATION: VITAL SIGNS: Stable. CARDIOVASCULAR: S1, S2. ABDOMEN: Soft. NERVOUS SYSTEM: No focal deficits. DISCHARGE MEDICATIONS: Resume the home medications. 1. Please add aspirin 81 mg p.o. daily. 2. Toprol-XL 50 mg p.o. daily. 3. Brilinta 90 mg p.o. b.i.d. 4. Amiodarone 400 mg p.o. b.i.d. currently and then adjust outpatient per Cardiology. 5. Eliquis 5 mg p.o. b.i.d. 6. Nitroglycerin p.r.n. Follow up with Dr. Nunez in 1 week. Follow up with Dr. Misha Mueller as recommended. Once again, the patient will be discharged in stable condition and guarded prognosis. Total time, 35 minutes. MMBERTHAL / BENNYN: [id number] /
--- NOTE | 2022-04-06 13:42 | P.PN ---
Subjective Progress Note Date: 04/06/22 A pleasant 82-year-old lady who presented to the hospital with unstable angina. Underwent stress test that showed ischemia in the LAD distribution and 10 undergo cardiac catheterization with complex PCI of the LAD. She subsequently developed more chest discomfort and bilateral arm pain with EKG changes and underwent emergent cardiac catheterization that revealed patent stent in the LAD. Troponins were elevated but felt to be related to recent angioplasty. She does have history of paroxysmal atrial fibrillation during this admission and has been on Eliquis, amiodarone and beta willam. She did have some atrial fibrillation with rapid ventricular response last night between 8 PM and 3 AM but is currently maintaining sinus mechanism. She denies any palpitations, shortness of breath or chest discomfort. She is overall feeling well this morning. Objective - Vital Signs Vital signs: Vital Signs Temp 97.7 F 04/06/22 07:00 Pulse 54 L 04/06/22 07:00 Resp 18 04/06/22 07:00 BP 107/66 04/06/22 07:00 Pulse Ox 98 04/06/22 08:52 FiO2 28 04/04/22 22:55 Intake & Output 04/05/22 04/06/22 04/06/22 18:59 06:59 18:59 Other: Voiding Method Toilet Toilet # Voids 1 1 # Bowel Movements 1 - Exam PHYSICAL EXAMINATION: HEENT: Head is atraumatic, normocephalic. Pupils equal, round. Neck is supple. There is no elevated jugular venous pressure. HEART EXAMINATION: Heart sounds regular, S1 and S2 normal. With a systolic murmur. CHEST EXAMINATION: Lungs are clear to auscultation. No chest wall tenderness is noted on palpation or with deep breathing. ABDOMEN: Soft, obese, nontender. Bowel sounds are heard. No organomegaly noted. EXTREMITIES: 2+ peripheral pulses with no evidence of peripheral edema and no calf tenderness noted. Right radial puncture sites soft, clean, dry and intact, without ecchymosis or hematoma. NEUROLOGIC patient is awake, alert and oriented x3. . - Labs CBC & Chem 7: 04/04/22 05:45 04/04/22 05:50 Labs: Abnormal Lab Results - Last 24 Hours (Table) 04/05/22 04/05/22 04/05/22 Range/Units 13:18 17:22 21:08 POC Glucose (mg/dL) 279 H 312 H 242 H (70-110) mg/dL 04/06/22 Range/Units 06:33 POC Glucose (mg/dL) 305 H (70-110) mg/dL Assessment and Plan Assessment: #1 chest pain, resolved #2 CAD, status post PCI of the LAD #3 paroxysmal atrial fibrillation Plan: [employer] perspective medications were reviewed and will continue the same. Continue Eliquis, Brilinta and aspirin. Continue Amiodarone and beta willam. She will follow-up as an outpatient in about a week with Dr. Nunez. TOURIST AGENT note has been reviewed, I agree with a documented findings and plan of care. Patient was seen and examined.
[2022-04-07] MEDS ORDERED: CYANOCOBALAMIN 500 MCG TAB PO SCH (09:00)
--- NOTE | 2022-04-12 11:49 | CDI ---
Documentation Clarification Form Date: 04/12/2022 11:28:38 AM From: Carolina Genao Admit Date: 04/03/2022 1:16:00 PM Patient Name: Leti Quispe Visit Number: [id number] Discharge Date: 04/06/2022 3:30:00 PM ATTENTION: The Clinical Documentation Specialists (CDI) and [facility] Coding Staff appreciate your assistance in clarifying documentation. Please respond to the clarification below the line at the bottom and electronically sign. The CDI & [facility] Coding staff will review the response and follow-up if needed. Please note: Queries are made part of the Legal Health Record. If you have any questions, please contact the author of this message via ITS. Dr. Yung Nunez Probably induced dissection in the mid LAD, is documented in 04/03/2022 report. Additional clarification is requested regarding the relationship, if any, that exists between the diagnosis and the procedure. Was the dissection clinically significant and if so, was it a complication of the procecure. Patients Admitting Diagnosis: chest pain Post-Operative Diagnosis: CAD chronic total occlusion calcified lesion Procedure performed: Selective right and left coronary angiogram, Stenting Distal LAD, Mid LAD and proximal LAD. Intravascular ultrasound of left anterior descending artery. History/Risk Factors: CAD, SANGEETHA, HTN, A fib persistent, calcified coronary lesion, DM, aortic and mitral regurgitation. Clinical Indicators: Chest pain Treatment: Stents x 3, stress test, Echo, Doppler Consults: What relationship, if any, exists between the diagnosis of dissection of mid LAD and the procedure: [ ] Dissection of mid LAD is clinically significant and is a complication of surgical procedure [ ] Dissection of mid LAD is not clinically signifcant and not a complication of the procedure. [ ] Dissection of mid LAD is clinically significant and not a complication of the procedure. [ ] Dissection of mid LAD has been ruled out [ ] Other please specify ____ [ ] Unable to determine MTDD
--- NOTE | 2022-04-12 12:00 | CDI ---
Documentation Clarification Form Date: 04/12/2022 11:52:21 AM From: Carolina Genao Admit Date: 04/03/2022 1:16:00 PM Patient Name: Leti Quispe Visit Number: [id number] Discharge Date: 04/06/2022 3:30:00 PM ATTENTION: The Clinical Documentation Specialists (CDI) and [facility] Coding Staff appreciate your assistance in clarifying documentation. Please respond to the clarification below the line at the bottom and electronically sign. The CDI & [facility] Coding staff will review the response and follow-up if needed. Please note: Queries are made part of the Legal Health Record. If you have any questions, please contact the author of this message via ITS. Dr. Yung Nunez Patient status post repeat cardiac cath overnight. LAD stent was found to be patent is documented in Progress note 04/05. There is no dictation for this Cardiac Cath. Additional clarification regarding if the patient had an emergent heart cath on 04/05/22 History/Risk factors: 3 stents 2 days prior Pre-Operative Diagnosis: Chest pain Postoperative Diagnosis: Patent LAD stent Clinical Indicators: Treatment: Emergent heart cath. There is not a dictated report of this procedure. Please clarify the following: [ ] Emergent cardiac cath was done 04/05 and report needs to be dictated [ ] Emergent cardiac cath was not done on 04/05 MTDD
--- NOTE | 2022-04-17 20:47 | CC ---
CARDIAC CATHETERIZATION REPORT INDICATION: Chest pain with abnormal stress test. PROCEDURE NOTE: After obtaining informed consent, left heart catheterization and coronary angiogram were performed via the right radial artery. The patient tolerated the procedure well without any obvious immediate complications. The right radial artery access was obtained using modified Seldinger technique. A 6- [place] Islander sheath was placed. Catheters and wires were floated into the ascending aorta under fluoroscopic guidance. A 3.5 right Bharati and a size 4 left Bharati were used. Hemodynamics were obtained using the 5-[place] Islander JR4 catheter. The patient received 5 mg of verapamil and intravenous heparin per protocol. FINDINGS: 1. HEMODYNAMICS: Left ventricular end-diastolic pressure is 10 to 12 mmHg. There is no significant gradient across the aortic valve. 2. LEFT VENTRICULOGRAM: Left ventriculogram is not performed. 3. ANGIOGRAPHIC DATA: Right coronary artery: Right coronary artery is a large dominant vessel and is free of stenosis. Left main coronary artery is a normal- sized vessel and is free of stenosis, appears calcified. It divides into left anterior descending coronary artery and circumflex coronary artery. Circumflex coronary artery and its branches are free of significant stenosis. LAD shows 80% to 90% stenosis in its midportion. CONCLUSION: 80% to 90% stenosis involving mid LAD. PLAN: The patient will undergo angioplasty of the same by Dr. Nunez, the on-call residency coordinator. SHAWN / BENNYN: [id number] /
--- NOTE | 2022-05-03 08:19 | CDI ---
Documentation Clarification Form Date: 05/03/2022 8:02:17 AM From: Carolina Genao Admit Date: 04/03/2022 1:16:00 PM Patient Name: Leti Quispe Visit Number: [id number] Discharge Date: 04/06/2022 3:30:00 PM ATTENTION: The Clinical Documentation Specialists (CDI) and [facility] Coding Staff appreciate your assistance in clarifying documentation. Please respond to the clarification below the line at the bottom and electronically sign. The CDI & [facility] Coding staff will review the response and follow-up if needed. Please note: Queries are made part of the Legal Health Record. If you have any questions, please contact the author of this message via ITS. Dr. Nunez Probably induced dissection in the mid LAD is documented in 04/03/2022 report Additional clarification is requested regarding the relationship, if any, that exists between the diagnosis and the procedure. Was the dissection clinically significant and if so, was it a complication of the procedure. Patients Admitting Diagnosis: Chest pain Post-Operative Diagnosis: CAD, chronic total occlusion calcified lesion Procedure performed: Selective right and left coronary angiogram, stenting. Distal LAD, Mid LAD and proximal LAD. Intravascular ultrasound of left anterior descending artery History/Risk Factors: CAD, SANGEETHA, HTN, Afib persisent, calcified coronary lesion, DM, aortic and mitral regurgitation. Clinical Indicators: Chest pain Treatment: Stents x 3, stress test. Echo, Doppler Consults: What relationship, if any, exists between the diagnosis of dissection of mid LAD and the procedure: [ ] Dissection of mid LAD is clinically significant and is a complication of surgical procedure [ ] Dissection of mid LAD is not clinically significant and not a complication of the procedure. [ ] Dissection of mid LAD is clinically significant and not a complication of the procedure [ ] Dissection of mid LAD has been ruled out [ ] Other please specify ____ [ ] Unable to determine MTDD
== END 2022-04-06 15:30 | disposition home health service (06) | DRG 246 ==
LOC: EC 13:15 → 6NMEDSUR 19:28 → OBSVTOIN 04-03 13:16 → 2SICU 04-05 00:13 → 6NMEDSUR 04-05 01:06
PROVIDERS: ADMIT Hospitalist; ATTEND Hospitalist
DX: I21.3 ST elevation (STEMI) myocardial infarction of unspecified site (principal); I25.42 Coronary artery dissection; I48.19 Other persistent atrial fibrillation; J98.11 Atelectasis; E87.1 Hypo-osmolality and hyponatremia; I97.88 Other intraoperative complications of the circulatory system, not elsewhere classified; F41.9 Anxiety disorder, unspecified; E03.9 Hypothyroidism, unspecified; E11.42 Type 2 diabetes mellitus with diabetic polyneuropathy; E78.5 Hyperlipidemia, unspecified; I25.84 Coronary atherosclerosis due to calcified coronary lesion; G47.00 Insomnia, unspecified; G47.33 Obstructive sleep apnea (adult) (pediatric); I08.0 Rheumatic disorders of both mitral and aortic valves; I10 Essential (primary) hypertension; I25.10 Atherosclerotic heart disease of native coronary artery without angina pectoris; K21.9 Gastro-esophageal reflux disease without esophagitis; M19.90 Unspecified osteoarthritis, unspecified site; Z79.01 Long term (current) use of anticoagulants; Z79.02 Long term (current) use of antithrombotics/antiplatelets; Z79.82 Long term (current) use of aspirin; Z79.84 Long term (current) use of oral hypoglycemic drugs; Z79.890 Hormone replacement therapy; Z79.899 Other long term (current) drug therapy; Z85.828 Personal history of other malignant neoplasm of skin; Z86.73 Personal history of transient ischemic attack (TIA), and cerebral infarction without residual deficits; Z53.8 Procedure and treatment not carried out for other reasons; Z96.651 Presence of right artificial knee joint
CPT/HCPCS: 36415; 71046; 71275; 74018; 78452; 80048; 80053; 83690; 83735; 83880; 84484; 85025; 85379; 85610; 85730; 92978; 93005; 93017; 93306; 93454; 94760